=== PATIENT | male | born 1935 | race Caucasian/White ===

== ENCOUNTER → 2018-05-30 | Outpatient (CLI) | payer MEDICARE, OTHER ==
--- NOTE | 2018-05-30 12:35 | CT ---
EXAMINATION TYPE: CT brain wo con, CT facial bones wo con DATE OF EXAM: 05/30/2018 COMPARISON: None HISTORY: Multiple contusions, Syncope (accession [id number]), Multiple contusions and syncope (accessio n [id number]) CT DLP: 1542.90 mGycm Automated exposure control for dose reduction was used. TECHNIQUE: CT scan of the head and facial bones was performed without contrast. FINDINGS: There is no acute intracranial hemorrhage or midline shift identified. There is diffuse v entricular and sulcal prominence consistent with diffuse age-related cerebral atrophy. There is low- attenuation in the periventricular white matter consistent with chronic small vessel ischemic change. Calcification near the inferior margin of the fourth ventricle appears extradural and could relate to a small calcified meningioma measuring 6 mm. This is nonobstructive. Calcifications are also seen in the foramen of Luschka and therefore this calcification may represent calcified choroid. 3 mm mucosal retention cyst versus small polyp is seen at the medial aspect of the left maxillary sin us. There is an acute minimally displaced fracture of both the right and left anterior portions of the na bayron bone that is mildly comminuted on the left. This is displaced approximately 1 mm rightward bilate rally. Only very mild overlying soft tissue swelling is seen. Punctate hyperdense foci are seen withi n the skin surface overlying the nasal bridge and frontal scalp. Correlate with the clinical exam for radiopaque foreign body. Maxillary spine appears intact. The remaining facial bones appear intact with nasal septum overall re maining midline. The mandibular condyles are located within the mandibular fossa. Zygomatic arches an d pterygoid plates are intact. Lamina papyracea are also intact as are the orbits. Ostiomeatal comple xes are patent. Globes are symmetric. Ocular lenses are either severely atrophic or surgically absent . IMPRESSION: 1. No acute intracranial process. 2. Minimally displaced and mildly comminuted nasal bone fracture with mild soft tissue swelling over the nasal bridge and multiple punctate densities overlying the skin surface of the frontal region and nasal bridge and may relate to superficial foreign bodies. 3. Small 6 mm calcification near the lateral aspect of the fourth ventricle that is nonobstructive. T his could represent choroid calcification or a small meningioma.
--- NOTE | 2018-05-30 13:10 | US ---
EXAMINATION TYPE: US carotid duplex BILAT DATE OF EXAM: 05/30/2018 COMPARISON: NONE CLINICAL HISTORY: T07.XXXA multiple contusions, R55 syncope. Syncope EXAM MEASUREMENTS: RIGHT: Peak Systolic Velocity (PSV) cm/sec ----- Right CCA: 69.9 ----- Right ICA: 62.5 ----- Right ECA: 98.8 ICA/CCA ratio: 0.9 RIGHT: End Diastole cm/sec ----- Right CCA: 11.7 ----- Right ICA: 16.2 ----- Right ECA: 0.0 LEFT: Peak Systolic Velocity (PSV) cm/sec ----- Left CCA: 79.8 ----- Left ICA: 80.9 ----- Left ECA: 74.5 ICA/CCA ratio: 1.0 LEFT: End Diastole cm/sec ----- Left CCA: 16.0 ----- Left ICA: 20.6 ----- Left ECA: 0.0 VERTEBRALS (direction of flow): Right Vertebral: Antegrade Left Vertebral: Antegrade Rhythm: Normal No elevated velocities, no significant stenosis. IMPRESSION: 1. No significant hemodynamic stenosis. 2. Intimal thickening and changes of mild atherosclerotic plaque. Criteria for Assigning % of Stenosis / Diameter reduction (Estimation based on the indirect measurements of the internal carotid artery velocities (ICA PSV). 1. Normal (no stenosis)=ICA PSV < 125 cm/s: ratio < 2.0: ICA EDV<40 cm/s. 2. Less than 50% stenosis=ICA PSV < 125 cm/s: ratio < 2.0: ICA EDV<40 cm/s. 3. 50 to 69% stenosis=ICA PSV of 125 to 230 cm/s: ration 2.0 ? 4.0: ICA EDV 40-100 cm/s. 4. Greater than 70% stenosis to near occlusion= ICA PSV > 230 cm/s: ratio > 4.0: ICA EDV > 100 cm/s. 5. Near occlusion= ICA PSV velocities may be low or undetectable: variable ratio and ICA EDV. 6. Total occlusion=unable to detect flow.
--- NOTE | 2018-07-01 14:57 | HM ---
HOLTER MONITOR REPORT PROCEDURE PERFORMED: Event monitor PROCEDURE: Patient was monitored between May 30 and June 27, 2018. The baseline rhythm is sinus mechanism with episode of paroxysmal atrial tachycardia. No evidence of ventricular ectopic activity or significant pauses. CONCLUSION: Sinus mechanism baseline rhythm with short bursts of paroxysmal atrial tachycardia. JOSÉ MIGUEL / CHANTAL: [id number] /
== END | disposition home or self-care (01) ==
LOC: RADCTMAIN 11:41
PROVIDERS: ATTEND Internal Medicine
DX: I47.1 Supraventricular tachycardia (principal); R55 Syncope and collapse; S02.2XXA Fracture of nasal bones, initial encounter for closed fracture
CPT/HCPCS: 70450; 70486; 93270; 93271; 93880

== ENCOUNTER 2024-09-26 12:13 | Emergency (ER) | payer MEDICARE, OTHER ==
[2024-09-26 12:30] VITALS: BP 137/76; PULSE 93; RESP 18; TEMP 97.6
--- NOTE | 2024-09-26 13:05 | ED ---
General Adult HPI - General Chief complaint: Abdominal Pain Stated complaint: AMS Time Seen by Provider: 09/26/24 12:30 Source: patient, RN notes reviewed, old records reviewed Mode of arrival: wheelchair Limitations: no limitations - History of Present Illness Initial comments: This is an 89-year-old male who presents to the emergency department stating that he has a little bit of a bulge in his left inguinal region and he thinks he might have a hernia. Patient states it does not hurt. Patient denies any abdominal pain. Patient denies any nausea vomiting diarrhea. Patient denies any injury. Patient has any fever chills or cough. - Related Data Allergies Allergy/AdvReac Type Severity Reaction Status Date / Time No Known Allergies Allergy Verified 09/26/24 12:25 Review of Systems ROS Statement: Those systems with pertinent positive or pertinent negative responses have been documented in the HPI. ROS Other: All systems not noted in ROS Statement are negative. Past Medical History Past Medical History: No Reported History History of Any Multi-Drug Resistant Organisms: None Reported Past Surgical History: Tonsillectomy Past Psychological History: No Psychological Hx Reported Smoking Status: Former smoker Past Alcohol Use History: None Reported Past Drug Use History: None Reported General Exam - General Exam Comments Initial Comments: GENERAL: Patient is well-developed and well-nourished. Patient is nontoxic and well- hydrated and is in no acute distress. ENT: Neck is soft and supple. No significant lymphadenopathy is noted. Oropharynx is clear. Moist mucous membranes. Neck has full range of motion without eliciting any pain. EYES: The sclera were anicteric and conjunctiva were pink and moist. Extraocular movements were intact and pupils were equal round and reactive to light. Eyelids were unremarkable. PULMONARY: Unlabored respirations. Good breath sounds bilaterally. No audible rales rhonchi or wheezing was noted. CARDIOVASCULAR: There is a regular rate and rhythm without any murmurs gallops or rubs. ABDOMEN: Soft and nontender with normal bowel sounds. Small reducible left inguinal hernia SKIN: Skin is clear with no lesions or rashes and otherwise unremarkable. NEUROLOGIC: Patient is alert and oriented x3. Cranial nerves II through XII are grossly intact. Motor and sensory are also intact. Normal speech, volume and content. Symmetrical smile. MUSCULOSKELETAL: Normal extremities with adequate strength and full range of motion. LYMPHATICS: No significant lymphadenopathy is noted PSYCHIATRIC: Normal psychiatric evaluation. Limitations: no limitations Course Vital Signs 09/26/24 12:25 Temperature 97.6 F Pulse Rate 93 Respiratory 18 Rate Blood Pressure 137/76 O2 Sat by Pulse 98 Oximetry Disposition Clinical Impression: Inguinal hernia Disposition: HOME SELF-CARE Condition: Good Instructions (If sedation given, give patient instructions): Inguinal Hernia (ED) Is patient prescribed a controlled substance at d/c from ED?: No Referrals: Fantasma Grimaldo DO [Medical Doctor] - 1-2 days Fletcher Evans MD [Primary Care Provider] - 1-2 days Time of Disposition: 13:05
== END 2024-09-26 13:26 | disposition home or self-care (01) ==
LOC: EC 12:13
DX: K40.90 Unilateral inguinal hernia, without obstruction or gangrene, not specified as recurrent (principal); Z87.891 Personal history of nicotine dependence
CPT/HCPCS: 99283

== ENCOUNTER 2024-10-02 11:28 | Emergency (ER) | payer MEDICARE, OTHER ==
[2024-10-02 12:10] LABS: Basophils % (A) 0 %; Eosinophils % (A) 1 %; HCT 47.4 % (39.0-53.0); HGB 16.1 gm/dL (13.0-17.5); Lymphocytes # (A) 0.9 k/uL (1.0-4.8); Lymphocytes % (A) 14 %; MCH 33.2 pg (25.0-35.0); MCHC 33.8 g/dL (31.0-37.0); Mean Platelet Volume 9.4; Monocytes # (A) 0.3 k/uL (0-1.0); Monocytes % (A) 5 %; Neutrophils # (A) 4.7 k/uL (1.3-7.7); Neutrophils % (A) 76 %; Platelet Count 166 k/uL (150-450); RBC 4.84 m/uL (4.30-5.90); RDW 12.7 % (11.5-15.5); WBC 6.2 k/uL (3.8-10.6)
[2024-10-02 12:11] LABS: Appearance,Urine Clear (Clear); Bilirubin,Urine Negative (Negative); Blood,Urine Negative (Negative); Color,Urine Light Yellow; Glucose,Urine (UA) Negative (Negative); Ketones,Urine Negative (Negative); Leukocyte Esterase,Urine Negative (Negative); Nitrite,Urine Negative (Negative); Protein,Urine Negative (Negative); Specific Gravity,Urine 1.022 (1.001-1.035); Urobilinogen,Urine <2.0 mg/dL (<2.0)
[2024-10-02 12:21] LABS: ALT 15 U/L (4-49); AST 23 U/L (17-59); African American GFR (CKD) 89 (>60 ml/min/1.73 sqM); Albumin 3.9 g/dL (3.5-5.0); Alkaline Phosphatase 64 U/L (38-126); Anion Gap 4 mmol/L; Blood Urea Nitrogen 20 mg/dL (9-20); Calcium 9.3 mg/dL (8.4-10.2); Carbon Dioxide 31 mmol/L (22-30); Chloride 104 mmol/L (98-107); Glucose 104 mg/dL (74-99); Non-African American GFR(CKD) 77 (>60 ml/min/1.73 sqM); Potassium 4.4 mmol/L (3.5-5.1); Sodium 139 mmol/L (137-145); Total Protein 6.7 g/dL (6.3-8.2)
--- NOTE | 2024-10-02 12:39 | ED ---
Abdominal Pain HPI - General Chief Complaint: Abdominal Pain Stated Complaint: buldge in lower left side Time Seen by Provider: 10/02/24 11:37 Source: patient, RN notes reviewed, old records reviewed Mode of arrival: ambulatory Limitations: no limitations - History of Present Illness Initial Comments: 89-year-old male presented to ER with a chief complaint of left groin pain and bulging. He states it has been there for "a while". Patient is unsure of exactly how long. Patient was seen here on 09-26-2024 and diagnosed with a left inguinal hernia. It was reduced at that time. Patient states he is continue to have pain and discomfort to that area. He reports normal bowel movements and urinary habits. Denies any nausea, vomiting, fevers or chills. Patient has no other complaints at this time. - Related Data Home Medications Medication Instructions Recorded Confirmed No Known Home Medications 10/02/24 10/02/24 Allergies Allergy/AdvReac Type Severity Reaction Status Date / Time No Known Allergies Allergy Verified 10/02/24 14:31 Review of Systems ROS Statement: Those systems with pertinent positive or pertinent negative responses have been documented in the HPI. ROS Other: All systems not noted in ROS Statement are negative. Past Medical History Past Medical History: No Reported History History of Any Multi-Drug Resistant Organisms: None Reported Past Surgical History: Tonsillectomy Past Psychological History: No Psychological Hx Reported Smoking Status: Former smoker Past Alcohol Use History: None Reported Past Drug Use History: None Reported General Exam Limitations: no limitations General appearance: alert, in no apparent distress Respiratory exam: Present: normal lung sounds bilaterally. Absent: respiratory distress, wheezes, rales, rhonchi, stridor Cardiovascular Exam: Present: regular rate, normal rhythm, normal heart sounds. Absent: systolic murmur, diastolic murmur, rubs, gallop, clicks GI/Abdominal exam: Present: soft, normal bowel sounds, hernia (left inguinal). Absent: distended, tenderness, guarding, rebound, rigid Neurological exam: Present: alert, oriented X3, CN II-XII intact Skin exam: Present: warm, dry, intact, normal color. Absent: rash Course Vital Signs 10/02/24 10/02/24 10/02/24 11:31 13:33 14:00 Temperature 98 F 99.2 F Pulse Rate 89 98 83 Respiratory 20 18 18 Rate Blood Pressure 150/77 142/83 150/77 O2 Sat by Pulse 98 96 97 Oximetry 10/02/24 14:49 Temperature 98.9 F Pulse Rate 88 Respiratory 18 Rate Blood Pressure 152/86 O2 Sat by Pulse 97 Oximetry Medical Decision Making - Medical Decision Making Was pt. sent in by a medical professional or institution (, PA, SHOTG[employer] SHELL ASSEMBLY MACHINE ADJUSTER, urgent care, hospital, or [place] health care facility...) When possible be specific @ -No Did you speak to anyone other than the patient for history (EMS, parent, family, police, friend...)? What history was obtained from this source @ -No Did you review nursing and triage notes (agree or disagree)? Why? @ -I reviewed and agree with nursing and triage notes Were old charts reviewed (outside hosp., previous admission, EMS record, old EKG, old radiological studies, urgent care reports/EKG's, [place] health [facility] facility records)? Report findings @ -Yes, I reviewed ER visit from 09-26-2024. Patient seen here and diagnosed with inguinal hernia. Differential Diagnosis (chest pain, altered mental status, abdominal pain women, abdominal pain men, vaginal bleeding, weakness, fever, dyspnea, syncope, headache, dizziness, GI bleed, back pain, seizure, CVA, palpatations, mental health, musculoskeletal)? @ -Differential Abdominal Pain Men: Appendicitis, cholecystitis, diverticulosis, ischemic bowel, pancreatitis, hepatitis, UTI, gastroenteritis, AAA, incarcerated hernia, bowel obstruction, constipation, inflammatory bowel, hepatitis, peptic ulcer disease, splenic infarction, perforated viscus, testicular torsion, this is not meant to be an all-inclusive list EKG interpreted by me (3pts min.). @ -None done X-rays interpreted by me (1pt min.). @ -None done CT interpreted by me (1pt min.). @ -CT abdomen pelvis showing a left inguinal hernia with a small amount of bowel in hernia. No bowel obstruction or free air. Colonic diverticulosis. Large amount of stool in the colon. Prostamegaly. Cholelithiasis. Simple appearing renal cyst. U/S interpreted by me (1pt. min.). @ -None done What testing was considered but not performed or refused? (CT, X-rays, U/S, labs)? Why? @ -None What meds were considered but not given or refused? Why? @ -None Did you discuss the management of the patient with other professionals (professionals i.e. DrNichole, PA, [employer] SHELL ASSEMBLY MACHINE ADJUSTER, lab, RT, psych nurse, social media community manager, iap displays analyst, teacher, aoc operations intelligence officer, rn case manager hospice)? Give summary @ -No Was smoking cessation discussed for >3mins.? @ -No Was critical care preformed (if so, how long)? @ -No Were there social determinants of health that impacted care today? How? (Homelessness, low income, unemployed, alcoholism, drug addiction, transportation, low edu. Level, literacy, decrease access to med. care, fdc, rehab)? @ -No Was there de-escalation of care discussed even if they declined (Discuss DNR or withdrawal of care, Hospice)? DNR status @ -No What co-morbidities impacted this encounter? (DM, HTN, Smoking, COPD, CAD, Cancer, CVA, ARF, Chemo, Hep., AIDS, mental health diagnosis, sleep apnea, morbid obesity)? @ -None Was patient admitted / discharged? Hospital course, mention meds given and route, prescriptions, significant lab abnormalities, going to OR and other pertinent info. @ -Discharge. 89-year-old male presented to the ER with a chief complaint of left groin swelling. History and physical exam completed. Vitals stable. Patient in no significant distress nontoxic-appearing. Abdomen soft and nontender. Left inguinal hernia present. Laboratory studies and urinalysis obtained and unremarkable. CT abdomen pelvis performed to rule out complicating factors. CT showing a left inguinal hernia containing a small portion of the bowel. Upon reexamination. Patient resting comfortably in exam room no signs of acute distress. Hernia is reducible. Patient stable for discharge with general surgery follow-up. Referrals given. Strict return parameters discussed. Patient discharged in stable condition with follow-up to PCP. Patient verbally expressed understanding and agreement with care plan. Case discussed with ED attending, . Undiagnosed new problem with uncertain prognosis? @ -No Drug Therapy requiring intensive monitoring for toxicity (Heparin, Nitro, Insulin, Cardizem)? @ -No Were any procedures done? @ -No Diagnosis/symptom? @ -Inguinal hernia Acute, or Chronic, or Acute on Chronic? @ -Acute Uncomplicated (without systemic symptoms) or Complicated (systemic symptoms)? @ -Uncomplicated Side effects of treatment? @ -No Exacerbation, Progression, or Severe Exacerbation? @ -No Poses a threat to life or bodily function? How? (Chest pain, [place], [place], pneumonia, PE, COPD, DKA, ARF, appy, cholecystitis, CVA, Diverticulitis, Homicidal, Suicidal, threat to staff... and all critical care pts) @ -No - Lab Data Result diagrams: 10/02/24 12:00 10/02/24 12:00 Lab Results 10/02/24 10/02/24 10/02/24 Range/Units 12:00 12:00 12:00 WBC 6.2 (3.8-10.6) k/uL RBC 4.84 (4.30-5.90) m/uL Hgb 16.1 (13.0-17.5) gm/dL Hct 47.4 (39.0-53.0) % MCV 98.0 (80.0-100.0) fL MCH 33.2 (25.0-35.0) pg MCHC 33.8 (31.0-37.0) g/dL RDW 12.7 (11.5-15.5) % Plt Count 166 (150-450) k/uL MPV 9.4 Neutrophils % 76 % Lymphocytes % 14 % Monocytes % 5 % Eosinophils % 1 % Basophils % 0 % Neutrophils # 4.7 (1.3-7.7) k/uL Lymphocytes # 0.9 L (1.0-4.8) k/uL Monocytes # 0.3 (0-1.0) k/uL Eosinophils # 0.0 (0-0.7) k/uL Basophils # 0.0 (0-0.2) k/uL Sodium 139 (137-145) mmol/L Potassium 4.4 (3.5-5.1) mmol/L Chloride 104 (98-107) mmol/L Carbon Dioxide 31 H (22-30) mmol/L Anion Gap 4 mmol/L BUN 20 (9-20) mg/dL Creatinine 0.88 (0.66-1.25) mg/dL Est GFR (CKD-EPI)AfAm 89 (>60 ml/min/1.73 sqM) Est GFR (CKD-EPI)NonAf 77 (>60 ml/min/1.73 sqM) Glucose 104 H (74-99) mg/dL Plasma Lactic Acid Harsh (0.7-2.0) mmol/L Calcium 9.3 (8.4-10.2) mg/dL Total Bilirubin 1.0 (0.2-1.3) mg/dL AST 23 (17-59) U/L ALT 15 (4-49) U/L Alkaline Phosphatase 64 (38-126) U/L Total Protein 6.7 (6.3-8.2) g/dL Albumin 3.9 (3.5-5.0) g/dL Urine Color Light Yellow Urine Appearance Clear (Clear) Urine pH 5.0 (5.0-8.0) Ur Specific Cheriton 1.022 (1.001-1.035) Urine Protein Negative (Negative) Urine Glucose (UA) Negative (Negative) Urine Ketones Negative (Negative) Urine Blood Negative (Negative) Urine Nitrite Negative (Negative) Urine Bilirubin Negative (Negative) Urine Urobilinogen <2.0 (<2.0) mg/dL Ur Leukocyte Esterase Negative (Negative) 10/02/24 Range/Units 12:00 WBC (3.8-10.6) k/uL RBC (4.30-5.90) m/uL Hgb (13.0-17.5) gm/dL Hct (39.0-53.0) % MCV (80.0-100.0) fL MCH (25.0-35.0) pg MCHC (31.0-37.0) g/dL RDW (11.5-15.5) % Plt Count (150-450) k/uL MPV Neutrophils % % Lymphocytes % % Monocytes % % Eosinophils % % Basophils % % Neutrophils # (1.3-7.7) k/uL Lymphocytes # (1.0-4.8) k/uL Monocytes # (0-1.0) k/uL Eosinophils # (0-0.7) k/uL Basophils # (0-0.2) k/uL Sodium (137-145) mmol/L Potassium (3.5-5.1) mmol/L Chloride (98-107) mmol/L Carbon Dioxide (22-30) mmol/L Anion Gap mmol/L BUN (9-20) mg/dL Creatinine (0.66-1.25) mg/dL Est GFR (CKD-EPI)AfAm (>60 ml/min/1.73 sqM) Est GFR (CKD-EPI)NonAf (>60 ml/min/1.73 sqM) Glucose (74-99) mg/dL Plasma Lactic Acid Harsh 1.7 (0.7-2.0) mmol/L Calcium (8.4-10.2) mg/dL Total Bilirubin (0.2-1.3) mg/dL AST (17-59) U/L ALT (4-49) U/L Alkaline Phosphatase (38-126) U/L Total Protein (6.3-8.2) g/dL Albumin (3.5-5.0) g/dL Urine Color Urine Appearance (Clear) Urine pH (5.0-8.0) Ur Specific Cheriton (1.001-1.035) Urine Protein (Negative) Urine Glucose (UA) (Negative) Urine Ketones (Negative) Urine Blood (Negative) Urine Nitrite (Negative) Urine Bilirubin (Negative) Urine Urobilinogen (<2.0) mg/dL Ur Leukocyte Esterase (Negative) - Radiology Data Radiology results: report reviewed, image reviewed Disposition Clinical Impression: Inguinal hernia Disposition: HOME SELF-CARE Condition: Stable Instructions (If sedation given, give patient instructions): Inguinal Hernia (ED) Additional Instructions: Follow-up with general surgeon. Return to the ER for any new or worsening symptoms. Is patient prescribed a controlled substance at d/c from ED?: No Referrals: Fletcher Evans MD [Primary Care Provider] - 1-2 days Leigh Ford MD [STAFF PHYSICIAN] - 1-2 days Fantasma Grimaldo DO [Medical Doctor] - 1-2 days Time of Disposition: 16:00
[2024-10-02 13:37] VITALS: RESP 18
--- NOTE | 2024-10-02 14:01 | CT ---
EXAMINATION TYPE: CT abdomen pelvis w con DATE OF EXAM: 10/02/2024 1:43 PM COMPARISON: None CLINICAL INDICATION: Male, 89 years old with history of left inguninal pain; Left inguinal pain TECHNIQUE: Axial CT abdomen pelvis w con;Sagittal and coronal reformats were created on a separate w orkstation. Contrast used:100 ml mL of Isovue 300 with IV Contrast, (none if empty) Oral contrast used: without Oral Contrast (none if empty) CT DLP: 597.3 mGycm, Automated exposure control for dose reduction was used. FINDINGS: LOWER CHEST: Unremarkable ABDOMEN LIVER: Unremarkable GALLBLADDER AND BILE DUCTS: Layering increased densities within the lumen consistent with gallstones are present. PANCREAS: Unremarkable. SPLEEN: Unremarkable. ADRENAL GLANDS: Unremarkable. KIDNEYS AND URETERS: No evidence of hydronephrosis or renal calculus. The ureters are unremarkable. Simple appearing renal cysts bilaterally. PELVIS BLADDER: No evidence for wall thickening or mass given limitations of exam. REPRODUCTIVE: Prostate is enlarged in size measuring 5.7 cm in transverse dimension. ABDOMEN & PELVIS STOMACH AND BOWEL: No evidence of bowel obstruction. Is visualized and normal. Large amount stool in the colon. PERITONEUM/RETROPERITONEUM: No evidence of pneumoperitoneum or free fluid. VASCULATURE: No evidence of aortic aneurysm. MUSCULOSKELETAL: No acute osseous abnormalities LYMPH NODES: No gross evidence for lymphadenopathy. SOFT TISSUE/ABDOMINAL WALL: Left inguinal hernia containing portion of small bowel. No evidence of ob struction or circulation. IMPRESSION: 1. Left inguinal hernia containing portion of small bowel. No evidence of obstruction or circulation . 2. Colonic diverticulosis. 3. Large amount stool throughout the colon. 4. Prostatomegaly, correlate serum PSA. 5. Cholelithiasis. 6. Simple appearing renal cysts. [facility], , 10/02/2024 1:59 PM
[2024-10-02 14:50] VITALS: BP 152/86; PULSE 88; TEMP 98.9
== END 2024-10-02 15:10 | disposition home or self-care (01) ==
LOC: EC 11:28
DX: K40.90 Unilateral inguinal hernia, without obstruction or gangrene, not specified as recurrent (principal); K57.30 Diverticulosis of large intestine without perforation or abscess without bleeding; Z87.891 Personal history of nicotine dependence
CPT/HCPCS: 36415; 80053; 83605; 85025; 81003; 74177; 99285; Q9967

== ENCOUNTER 2024-10-07 15:55 | Emergency (ER) | payer MEDICARE, OTHER ==
[2024-10-07 16:03] VITALS: RESP 18
--- NOTE | 2024-10-07 17:03 | ED ---
Abdominal Pain HPI - General Chief Complaint: Abdominal Pain Stated Complaint: confusion/hernia Time Seen by Provider: 10/07/24 16:08 Source: patient, RN notes reviewed Mode of arrival: ambulatory Limitations: no limitations - History of Present Illness Initial Comments: This is a 89-year-old male presenting with left groin hernia. Patient is states he is seeking immediate surgery, hoping admission through the ER will expedite the process. Patient endorses discovery of the hernia and abdominal/pelvic CT scan on 10/02/2024. Patient denies fever, chills, abdominal pain, hematochezia, melena, constipation. Onset/Timin -: month(s) Location: LLQ Severity scale (1-10): 0 Associated Symptoms: denies other symptoms - Related Data Home Medications Medication Instructions Recorded Confirmed No Known Home Medications 10/02/24 10/02/24 Allergies Allergy/AdvReac Type Severity Reaction Status Date / Time No Known Allergies Allergy Verified 10/02/24 14:31 Review of Systems ROS Statement: Those systems with pertinent positive or pertinent negative responses have been documented in the HPI. ROS Other: All systems not noted in ROS Statement are negative. Past Medical History Past Medical History: No Reported History History of Any Multi-Drug Resistant Organisms: None Reported Past Surgical History: Tonsillectomy Past Psychological History: No Psychological Hx Reported Smoking Status: Former smoker Past Alcohol Use History: None Reported Past Drug Use History: None Reported General Exam Limitations: no limitations General appearance: alert, in no apparent distress Head exam: Present: atraumatic, normocephalic, normal inspection Eye exam: Present: normal appearance, PERRL, EOMI. Absent: scleral icterus, conjunctival injection, periorbital swelling ENT exam: Present: normal exam, mucous membranes moist Neck exam: Present: normal inspection. Absent: tenderness, meningismus, lymphadenopathy Respiratory exam: Present: normal lung sounds bilaterally. Absent: respiratory distress, wheezes, rales, rhonchi, stridor Cardiovascular Exam: Present: regular rate, normal rhythm, normal heart sounds. Absent: systolic murmur, diastolic murmur, rubs, gallop, clicks GI/Abdominal exam: Present: soft, normal bowel sounds, hernia (Mild, reducible protrusion of left inguinal region without overlying erythema/color change or indications of strangulation). Absent: distended, tenderness, guarding, rebound, rigid Extremities exam: Present: normal inspection, full ROM, normal capillary refill. Absent: tenderness, pedal edema, joint swelling, calf tenderness Back exam: Present: normal inspection Neurological exam: Present: alert, oriented X3, CN II-XII intact Psychiatric exam: Present: normal affect, normal mood Skin exam: Present: warm, dry, intact, normal color. Absent: rash Course Vital Signs 10/07/24 10/07/24 15:58 17:50 Temperature 97.5 F L 98.1 F Pulse Rate 80 81 Respiratory 18 18 Rate Blood Pressure 151/79 124/73 O2 Sat by Pulse 98 97 Oximetry Medical Decision Making - Medical Decision Making Was pt. sent in by a medical professional or institution (, [facility], [facility], urgent care, hospital, or fci...) When possible be specific @ -No Did you speak to anyone other than the patient for history (EMS, parent, family, police, friend...)? What history was obtained from this source @ -No Did you review nursing and triage notes (agree or disagree)? Why? @ -I reviewed and agree with nursing and triage notes Were old charts reviewed (outside hosp., previous admission, EMS record, old EKG, old radiological studies, urgent care reports/EKG's, fci records)? Report findings @ -Abdominal/pelvic CT from 1128 reviewed to confirm discovery of inguinal hernia. Differential Diagnosis (chest pain, altered mental status, abdominal pain women, abdominal pain men, vaginal bleeding, weakness, fever, dyspnea, syncope, headache, dizziness, GI bleed, back pain, seizure, CVA, palpatations, mental health, musculoskeletal)? @ -Inguinal hernia as previously diagnosed on 10/02/2024 EKG interpreted by me (3pts min.). @ -Not done X-rays interpreted by me (1pt min.). @ -None done CT interpreted by me (1pt min.). @ -None done U/S interpreted by me (1pt. min.). @ -None done What testing was considered but not performed or refused? (CT, X-rays, U/S, labs)? Why? @ -None What meds were considered but not given or refused? Why? @ -None Did you discuss the management of the patient with other professionals (professionals i.e. Dr., PA, [facility], lab, RT, psych nurse, social service worker, flare maker, teacher, vice squad police officer, medical case worker)? Give summary @ -No Was smoking cessation discussed for >3mins.? @ -No Was critical care preformed (if so, how long)? @ -No Were there social determinants of health that impacted care today? How? (Homelessness, low income, unemployed, alcoholism, drug addiction, transportation, low edu. Level, literacy, decrease access to med. care, [facility], rehab)? @ -No Was there de-escalation of care discussed even if they declined (Discuss DNR or withdrawal of care, Hospice)? DNR status @ -No What co-morbidities impacted this encounter? (DM, HTN, Smoking, COPD, CAD, Cancer, CVA, ARF, Chemo, Hep., AIDS, mental health diagnosis, sleep apnea, morbid obesity)? @ -None Was patient admitted / discharged? Hospital course, mention meds given and route, prescriptions, significant lab abnormalities, going to OR and other pertinent info. @ -No lab work or imaging ordered. Patient advised to follow-up with Dr. Grimaldo or Dr. Desouza for outpatient surgery. Undiagnosed new problem with uncertain prognosis? @ -No Drug Therapy requiring intensive monitoring for toxicity (Heparin, Nitro, Insulin, Cardizem)? @ -No Were any procedures done? @ -No Diagnosis/symptom? @ -Inguinal hernia without strangulation Acute, or Chronic, or Acute on Chronic? @ -Acute Uncomplicated (without systemic symptoms) or Complicated (systemic symptoms)? @ -Uncomplicated Side effects of treatment? @ -No Exacerbation, Progression, or Severe Exacerbation? @ -No Poses a threat to life or bodily function? How? (Chest pain, [place], [place], pneumonia, PE, COPD, DKA, ARF, appy, cholecystitis, CVA, Diverticulitis, Homicidal, Suicidal, threat to staff... and all critical care pts) @ -No Disposition Clinical Impression: Inguinal hernia Disposition: HOME SELF-CARE Condition: Good Instructions (If sedation given, give patient instructions): Inguinal Hernia (ED) Is patient prescribed a controlled substance at d/c from ED?: No Referrals: None,Stated [Primary Care Provider] - 1-2 days Fantasma Grimaldo DO [Medical Doctor] - 1-2 days Mely Desouza DO [Doctor of Osteopathic Medicine] - 1-2 days Time of Disposition: 17:09
[2024-10-07 17:51] VITALS: BP 124/73; PULSE 81; TEMP 98.1
== END 2024-10-07 17:52 | disposition home or self-care (01) ==
LOC: EC 15:55
DX: K40.90 Unilateral inguinal hernia, without obstruction or gangrene, not specified as recurrent (principal); Z87.891 Personal history of nicotine dependence
CPT/HCPCS: 99283

== ENCOUNTER 2024-12-16 06:37 | Inpatient (IN) | payer MEDICARE, OTHER ==
[~2024-12-16 06:37] MED LIST: LIDOCAINE 1% (10MG/ML) FOR IV START INTRADERMA PRN
[2024-12-16] MEDS: IV FLUID CONTINUATION 1,000 ML IV ONE ×2 (07:45→09:12)
[2024-12-16 07:56] LABS: Basophils % (A) 0 %; Eosinophils % (A) 1 %; HCT 45.7 % (39.0-53.0); HGB 15.4 gm/dL (13.0-17.5); Lymphocytes # (A) 0.6 k/uL (1.0-4.8); Lymphocytes % (A) 11 %; MCH 32.6 pg (25.0-35.0); MCHC 33.6 g/dL (31.0-37.0); MCV 96.8 fL (80.0-100.0); Mean Platelet Volume 9.3; Monocytes # (A) 0.4 k/uL (0-1.0); Monocytes % (A) 7 %; Neutrophils # (A) 4.4 k/uL (1.3-7.7); Neutrophils % (A) 77 %; Platelet Count 160 k/uL (150-450); RBC 4.71 m/uL (4.30-5.90); RDW 12.6 % (11.5-15.5); WBC 5.7 k/uL (3.8-10.6)
[2024-12-16] MEDS: MIDAZOLAM 2 MG/2 ML VIAL IV ONE (07:58)
--- NOTE | 2024-12-16 08:11 | P.ANPRN ---
Procedure Note - Anesthesia - Nerve Block Performed Bilateral Erector Spinae Single Time Out Performed: Yes Date of Procedure: 12/16/24 Procedure Start Time: 07:57 Procedure Stop Time: 08:02 Location of Patient: PreOp Indication: Acute Post-Operative Pain, Analgesia, Requested by Surgeon Sedation Type: Sedate with meaningful contact maintained Preparation: Sterile Prep Position: Prone Catheter: None Needle Types: Pajunk Needle Gauge: 21 Ultrasound used to visualize needle placement: Yes Ultrasound used to observe medication spread: Yes Injectate: 0.5% Ropivacaine (see comment for volume) (Ropiv 15ml+[id number], T11 needle level--Each side.) Blood Aspirated: No Pain Paresthesia on Injection Noted: No Resistance on Injection: Normal Image Stored and Saved: Yes Events: Uneventful and Well Tolerated
[2024-12-16] MEDS: LACTATED RINGERS 1,000 ML IV SCH (08:22)
[2024-12-16] MEDS: ONDANSETRON 4 MG/2 ML VIAL IVP ONE (08:23)
[2024-12-16] MEDS: HEPARIN SODIUM,PORCINE 5,000 UNIT/ML 1 ML VIAL SQ STA (08:24)
[2024-12-16] MEDS ORDERED: DEXAMETHASONE SOD PHOSPHATE 4 MG/ML 1 ML VIAL ONE (08:41)
[2024-12-16] MEDS ORDERED: SUCCINYLCHOLINE CHLORIDE 200 MG/10 ML VIAL IV ONE (08:41)
[2024-12-16] MEDS ORDERED: LIDOCAINE 1% INJ 10MG/ML (20 ML MDV) ONE (08:41)
[2024-12-16] MEDS ORDERED: fentaNYL (PF) 50 MCG/ML 2 ML AMP ONE (08:41)
[2024-12-16] MEDS ORDERED: NEOSTIGMINE 1 MG/ML 10 ML VIAL ONE (08:41)
[2024-12-16] MEDS ORDERED: PROPOFOL 10 MG/ML 20 ML VIAL IV ONE (08:41)
[2024-12-16] MEDS ORDERED: GLYCOPYRROLATE 0.2 MG/ML 2 ML VIAL ONE (08:41)
[2024-12-16] MEDS ORDERED: ROCURONIUM 10 MG/ML (5 ML VIAL) IV ONE (08:41)
[2024-12-16] MEDS ORDERED: ROPIVACAINE 5 MG/ML 30 ML VIAL ONE (08:41)
[2024-12-16] MEDS: BUPIVACAINE (PF) 0.25% 30 ML VIAL SQ ONE (09:15)
--- NOTE | 2024-12-16 10:03 | P.OP ---
Date of Procedure: 12/16/24 Preoperative Diagnosis: Left inguinal hernia Postoperative Diagnosis: Left inguinal hernia Procedure(s) Performed: Laparoscopic robotic cyst repair of left inguinal hernia Transversus abdominis plane block Anesthesia: JEANMARIE Surgeon: Bijan Lei Estimated Blood Loss (ml): 5 Pathology: none sent Condition: stable Disposition: PACU Description of Procedure: The patient's placed on the operating table in the supine position. The patient received general anesthesia. The patient's abdomen was prepped and draped in usual sterile fashion. The skin was anesthetized 1% local Xylocaine at the incision sites. Using an 11 blade a skin incision was made at the umbilicus. The fascia was grasped with a Opal and then the peritoneal cavity was entered with the Veress needle. Position of the Veress needle was confirmed with a positive drop test. After adequate insufflation a 5 mm trocar was placed into the peritoneal cavity. The Laparoscope was placed the peritoneal cavity. And a robotic 8 mm trocar was placed in the right lateral position and then another 8 mm robotic trochars placed in the left lateral position. The original 5 mm trocar was exchanged for a 12 mm trocar. A four-quadrant transversus abdominis plane block was performed with 1% local Xylocaine. The patient was placed in reverse Trendelenburg and then the patient was docked to the robot. Next the peritoneum over top of the hernia was incised and then using blunt and sharp dissection and electrocautery the hernia sac was dissected free from the floor of the inguinal canal. The hernia sac was completely reduced into the peritoneal cavity. And then using the [employer] travel counselor mesh the hernia was repaired. The peritoneum was then sutured with 20V lock suture. The patient was then undocked the robot. The needle was withdrawn from the peritoneal cavity. The umbilical trocar site was closed with 0 Ethibond suture. The skin was closed interrupted 3-0 Monocryl suture. Dermabond dressing was applied. Patient was sent to recovery in stable condition.
[2024-12-16] MEDS: HYDROmorphone 0.5 MG/0.5 ML SYRINGE IVP PRN (11:15)
[2024-12-16] MEDS ORDERED: HYDROcodone/APAP 5-325MG 1 EACH TAB PO PRN (12:37)
[2024-12-16] MEDS ORDERED: HYDROmorphone 0.5 MG/0.5 ML SYRINGE IVP PRN (12:38)
[2024-12-16] MEDS: TAMSULOSIN 0.4 MG CAP.ER.24H PO STA (12:53)
[2024-12-16] MEDS: amLODIPine 5 MG TAB PO SCH (14:26)
--- NOTE | 2024-12-17 01:26 | CONS ---
CONSULTATION REASON FOR CONSULTATION: Hypertension, other medications, requested by Dr. Lei. HISTORY OF PRESENT ILLNESS: This 89-year-old gentleman with a past no Primary Physician, admitted after laparoscopic repair of the left inguinal hernia. The patient is found to be mildly hypertensive. Otherwise, no chest pain. No palpitations. No fever at this time. PAST MEDICAL HISTORY: No significant cardiovascular illness. MEDICATIONS: None. ALLERGIES: None. FAMILY HISTORY: No history of heart disease or stroke. SOCIAL HISTORY: No history of smoking or alcohol. REVIEW OF SYSTEMS: A 14-point review of systems is negative except as mentioned earlier. PHYSICAL EXAMINATION: VITAL SIGNS: Pulse is 71, blood pressure 160/70, and respirations 16. HEENT: Conjunctivae normal. NECK: No JVD. CARDIOVASCULAR: S1, S2. RESPIRATIONS: Breath sounds diminished at the bases. No rhonchi. No crackles. ABDOMEN: Soft, status post surgery. LEGS: No edema. NERVOUS SYSTEM: Nonfocal. LABORATORY DATA: CBC within normal limits. ASSESSMENT: 1. Hypertension. 2. Status post laparoscopic repair of the left inguinal hernia. RECOMMENDATIONS AND DISCUSSION: This 89-year-old gentleman, who presented after surgery. At this time, I recommend to continue the current medications, symptomatic treatment. Otherwise, repeat labs in the morning. We will continue to monitor. Incentive spirometer and DVT prophylaxis. Further recommendations to follow. We will add small dose of Norvasc. Follow with the primary physician at outpatient setting. JOSÉ MIGUEL / LOREN: [id number] / MTDD
[2024-12-17] MEDS: TAMSULOSIN 0.4 MG CAP.ER.24H PO SCH (09:31)
[2024-12-17] MEDS: ACETAMINOPHEN TAB 325 MG TAB PO PRN (10:31)
--- NOTE | 2024-12-17 12:46 | P.PN ---
Subjective Progress Note Date: 12/17/24 SURGICAL PROGRESS NOTE CHIEF COMPLAINT: Left inguinal hernia HISTORY OF PRESENT ILLNESS: Patient is postop day #1 status post laparoscopic robotic repair of left inguinal hernia. Patient was confused during the night and had pulled on his Poole catheter. His Poole catheter was placed yesterday due to urinary retention. He had mild hematuria after pulling on catheter. Patient is currently awake and alert answering questions. He denies any flatus. Pain is controlled. He is requesting that the catheter be removed. Patient has received Flomax. Afebrile. WBC 5.7 Hgb 15.4 PHYSICAL EXAM: VITAL SIGNS: Reviewed. GENERAL: Well-developed in no acute distress. HEENT: No sclera icterus. Extraocular movements grossly intact. Moist buccal mucosa. Head is atraumatic, normocephalic. ABDOMEN: Soft. Nondistended. Incision sites clean dry and intact NEUROLOGIC: Alert and orientated times to his name and place. Patient did not know the year but he knew that it was the month of December ASSESSMENT: 1. Left inguinal hernia 2. Urinary retention PLAN: -Discontinue Poole catheter -Continue Flomax -Continue to monitor for any urinary retention -Tylenol added for oral pain medication -Discussed with nursing staff to try to limit narcotics if patient is confused -Consult PT OT. Patient may require placement. -DVT prophylaxis subcu heparin added Physician Bankruptcy Attorney note has been reviewed by physician. Signing provider agrees with the documented findings, assessment, and plan of care. Objective - Vital Signs Vital signs: Vital Signs Temp 98.6 F 12/17/24 07:00 Pulse 84 12/17/24 07:00 Resp 16 12/17/24 07:00 BP 142/67 12/17/24 07:00 Pulse Ox 96 12/17/24 07:00 FiO2 Intake & Output 12/16/24 12/17/24 12/17/24 18:59 06:59 18:59 Intake Total 1100 Output Total 510 1600 Balance 590 -1600 Intake: IV 1100 Output: Urine 500 1600 Estimated Blood Loss 10 Other: Voiding Method Indwelling Catheter Indwelling Catheter - Labs CBC & Chem 7: 12/16/24 07:46
[2024-12-17] MEDS: HEPARIN SODIUM,PORCINE 5,000 UNIT/ML 1 ML VIAL SQ SCH (20:17)
--- NOTE | 2024-12-17 21:31 | PN ---
PROGRESS NOTE DATE OF SERVICE: 12/17/2024 SUBJECTIVE: This is an 89-year-old gentleman, admitted after inguinal hernia repair, had some mild hypertension. No chest pain. No palpitations. No fever. OBJECTIVE: VITAL SIGNS: Stable. CARDIOVASCULAR: S1, S2. RESPIRATIONS: Breath sounds diminished at the bases. A few scattered rhonchi. ABDOMEN: Soft, status post surgery. LEGS: No edema. NERVOUS SYSTEM: Nonfocal. LABORATORY DATA: Reviewed. ASSESSMENT: 1. Hypertension. 2. Status post laparoscopic repair of the left inguinal hernia. RECOMMENDATIONS AND DISCUSSION: I recommend to continue current medications. Continue symptomatic treatment. Recommend close followup with primary physician. Continue Norvasc on discharge. Further recommendations to follow. MMODL / IJN: [id number] /
--- NOTE | 2024-12-18 11:14 | P.PN ---
Subjective Progress Note Date: 12/18/24 SURGICAL PROGRESS NOTE CHIEF COMPLAINT: Left inguinal hernia HISTORY OF PRESENT ILLNESS: Patient is postop day #2 status post laparoscopic robotic repair of left inguinal hernia. Per nursing staff patient still having a episodes of confusion. He also had some hallucinations. He is currently sitting at the bedside chair. Answering questions appropriately. He was able to tolerate diet. No nausea or vomiting. No bowel movement yet. He is urinating without difficulty. He is passing a few clots in his urine per nursing staff due to Poole catheter trauma. Also patient fell back in his bed hitting the side of his head. PHYSICAL EXAM: VITAL SIGNS: Reviewed. GENERAL: Well-developed in no acute distress. ABDOMEN: Soft. Nondistended. Incision sites clean dry and intact NEUROLOGIC: Awake and alert ASSESSMENT: 1. Left inguinal hernia 2. Urinary retention improved PLAN: -Social work is arranging ECF placement. They have also ordered APS eval -Continue to work with PT OT -Continue Flomax -Continue to monitor for any urinary retention -Continue pain management -DVT prophylaxis subcu heparin Physician Turn Machine Operator note has been reviewed by physician. Signing provider agrees with the documented findings, assessment, and plan of care. Objective - Vital Signs Vital signs: Vital Signs Temp 98.4 F 12/18/24 02:00 Pulse 91 12/18/24 02:00 Resp 19 12/18/24 08:00 BP 160/73 12/18/24 02:00 Pulse Ox 94 L 12/18/24 02:00 FiO2 Intake & Output 12/17/24 12/18/24 12/18/24 18:59 06:59 18:59 Intake Total 459 Output Total 500 200 Balance -41 -200 Intake: Oral 459 Output: Urine 500 200 Uretheral (Poole) 400 Other: Voiding Method Indwelling Catheter Toilet Toilet Urinal Urinal # Voids 2 - Labs CBC & Chem 7: 12/16/24 07:46
--- NOTE | 2024-12-18 12:52 | CT ---
EXAMINATION TYPE: CT brain wo con DATE OF EXAM: 12/18/2024 12:33 PM COMPARISON: 05/30/2028 CLINICAL INDICATION: Male, 89 years old with history of hit head on side rail, Head injury. TECHNIQUE: Brain: Axial CT images of the brain were obtained with coronal and sagittal reformats created and rev iewed. Contrast used: None. Oral contrast used: None. CT DLP: 928.1 mGycm, Automated exposure control for dose reduction was used. FINDINGS: Brain: Extra-axial spaces: No abnormal extra-axial fluid collections. Ventricular system: Dilatation in proportion to cerebral atrophy. Cerebral parenchyma: Cerebral atrophy. No acute intraparenchymal hemorrhage or mass effect. The madrigal -white junction is well differentiated. Scattered hypoattenuating areas are seen within the white mat ter. Cerebellum: Unremarkable. Mass effect: No evidence of midline shift. Intracranial vasculature: Atherosclerotic calcifications of the intracranial vessels. Soft tissues: Normal. Calvarium/osseous structures: No depressed skull fracture. Paranasal sinuses and mastoid air cells: Mild scattered paranasal sinus disease. Visualized orbits: Bilateral aphakia IMPRESSION: 1. No acute intracranial process. 2. Nonspecific white matter changes, likely secondary to chronic small vessel ischemic disease. [facility], , 12/18/2024 12:49 PM
--- NOTE | 2024-12-18 15:29 | P.PN ---
Subjective This is a pleasant 89 years old male who was admitted by surgery team for elective left inguinal hernia status postrepair Developed acute urinary turned tension, currently Poole catheter was removed. Patient was mildly confused but it looks improvement, last night he fell, CT of the brain was negative for acute process Today he is awake alert mildly confused, he follows command, he has insight into his illness. His left inguinal wound is healing He denies chest pain or dyspnea. No abdominal pain vomiting or diarrhea. No specific urinary symptoms. He is hemodynamically stable and afebrile. CBC was checked 2 days ago was unremarkable with no leukocytosis. Looks like also patient has difficulty with placement, social work supervisor on the case. Patient may need guardianship Objective - Vital Signs Vital signs: Vital Signs Temp 97.5 F L 12/18/24 07:40 Pulse 93 12/18/24 07:40 Resp 19 12/18/24 08:00 BP 124/55 12/18/24 07:40 Pulse Ox 96 12/18/24 07:40 FiO2 Intake & Output 12/17/24 12/18/24 12/18/24 18:59 06:59 18:59 Intake Total 459 118 Output Total 500 200 Balance -41 -82 Intake: Oral 459 118 Output: Urine 500 200 Uretheral (Poole) 400 Other: Voiding Method Indwelling Catheter Toilet Toilet Urinal Urinal # Voids 2 - Exam -GENERAL: The patient is alert and oriented x 2-3 partial, not in any acute distress. Well developed, well nourished. Generally weak HEENT: Pupils are round and equally reacting to light. EOMI. No scleral icterus. No conjunctival pallor. Normocephalic, atraumatic. No pharyngeal erythema. No thyromegaly. CARDIOVASCULAR: S1 and S2 present. No murmurs, rubs, or gallops. PULMONARY: Chest is clear to auscultation, no wheezing , no crackles. -ABDOMEN: Soft, nontender, nondistended, normoactive bowel sounds. No palpable organomegaly. Left inguinal wound is closed and healing MUSCULOSKELETAL: No joint swelling or deformity. EXTREMITIES: No cyanosis, clubbing, or pedal edema. NEUROLOGICAL: Gross neurological examination did not reveal any focal deficits. SKIN: No rashes. no petechiae. - Labs CBC & Chem 7: 12/16/24 07:46 Assessment and Plan Assessment: Fall without syncope Mild metabolic encephalopathy Acute urinary retention Left inguinal hernia s/p elective repair on 12/16 Hypertension Require placement Plan: Continue with pain management Continue supportive care Close monitoring Surgery team following closely Check labs Labs and medication were reviewed.. Continue same treatment. Continue with symptomatic treatment. Resume home medication. Monitor labs and vitals. DVT and GI prophylaxis. Further recommendations as per clinical course of the patient DVT prophylaxis: Subcutaneous heparin GI Prophylaxis: Pepcid PT/OT: Pending appliance worker on the case for placement Prognosis is guarded
[2024-12-18 15:56] LABS: African American GFR (CKD) 81 (>60 ml/min/1.73 sqM); Anion Gap 7 mmol/L; Blood Urea Nitrogen 25 mg/dL (9-20); Calcium 9.1 mg/dL (8.4-10.2); Carbon Dioxide 30 mmol/L (22-30); Chloride 101 mmol/L (98-107); Glucose 116 mg/dL (74-99); Non-African American GFR(CKD) 70 (>60 ml/min/1.73 sqM); Potassium 4.3 mmol/L (3.5-5.1); Sodium 138 mmol/L (137-145)
[2024-12-18 15:57] LABS: HGB 15.4 gm/dL (13.0-17.5); MCH 33.5 pg (25.0-35.0); MCHC 34.2 g/dL (31.0-37.0); MCV 97.9 fL (80.0-100.0); Mean Platelet Volume 9.9; Platelet Count 157 k/uL (150-450); RBC 4.59 m/uL (4.30-5.90); RDW 12.7 % (11.5-15.5); WBC 8.9 k/uL (3.8-10.6)
[2024-12-18 16:39] LABS: Lymphocytes # (M) 1.16 k/uL (1.0-4.8); Monocytes # (M) 0.36 k/uL (0-1.0); Neutrophils # (M) 7.39 k/uL (1.3-7.7); Neutrophils % (M) 83 %; Nucleated Red Blood Cells 0 /100 WBC (0-0); Total Cells Counted 100
[2024-12-19 01:24] LABS: Appearance,Urine Clear (Clear); Bacteria,Urine Rare /hpf; Bilirubin,Urine Negative (Negative); Blood,Urine Large (Negative); Color,Urine Yellow; Glucose,Urine (UA) Negative (Negative); Hyaline Casts,Urine 1 /lpf (0-2); Ketones,Urine Negative (Negative); Leukocyte Esterase,Urine Negative (Negative); Mucus,Urine Few /hpf; Nitrite,Urine Negative (Negative); PH, Urine 5.5 (5.0-8.0); Protein,Urine Trace (Negative); RBC,Urine 135 /hpf (0-5); Specific Gravity,Urine 1.027 (1.001-1.035); Urobilinogen,Urine <2.0 mg/dL (<2.0); WBC,Urine 7 /hpf (0-5)
--- NOTE | 2024-12-19 10:16 | P.PN ---
Subjective Progress Note Date: 12/19/24 SURGICAL PROGRESS NOTE CHIEF COMPLAINT: Left inguinal hernia HISTORY OF PRESENT ILLNESS: Patient is postop day #3 status post laparoscopic robotic repair of left inguinal hernia. Patient sitting up in bedside chair. He is eating breakfast. Denies any nausea or vomiting. Pain is controlled. Patient has been confused. Social work is arranging possible ECF placement and assessing patient if a guardian is needed. Afebrile. PHYSICAL EXAM: VITAL SIGNS: Reviewed. GENERAL: Well-developed in no acute distress. ABDOMEN: Soft. Nondistended. Incision sites clean dry and intact NEUROLOGIC: Awake and answering question. mild confusion ASSESSMENT: 1. Left inguinal hernia 2. Urinary retention improved PLAN: -Social work is arranging possible ECF placement and assessing patient if a guardian is needed -Continue to work with PT OT -Continue Flomax -Continue to monitor for any urinary retention -Continue pain management -Patient is stable for discharge from surgical standpoint when medically cleared and placement is arranged -DVT prophylaxis subcu heparin Physician Flask Maker note has been reviewed by physician. Signing provider agrees with the documented findings, assessment, and plan of care. Objective - Vital Signs Vital signs: Vital Signs Temp 97.7 F 12/19/24 07:00 Pulse 84 12/19/24 07:00 Resp 16 12/19/24 07:00 BP 112/70 12/19/24 07:00 Pulse Ox 97 12/19/24 07:00 FiO2 Intake & Output 12/18/24 12/19/24 12/19/24 18:59 06:59 18:59 Intake Total 458 240 Output Total 300 Balance 158 240 Intake: Oral 458 240 Output: Urine 300 Other: Voiding Method Toilet Toilet Urinal Urinal # Voids 4 - Labs CBC & Chem 7: 12/18/24 15:35 12/18/24 15:35 Labs: Abnormal Lab Results - Last 24 Hours (Table) 12/18/24 12/18/24 Range/Units 15:35 23:49 BUN 25 H (9-20) mg/dL Glucose 116 H (74-99) mg/dL Urine Protein Trace H (Negative) Urine Blood Large H (Negative) Urine RBC 135 H (0-5) /hpf Urine WBC 7 H (0-5) /hpf Urine Bacteria Rare H (None) /hpf Urine Mucus Few H (None) /hpf
--- NOTE | 2024-12-20 21:03 | P.PN ---
Subjective Progress Note Date: 12/19/24 This is a pleasant 89 years old male who was admitted by surgery team for elective left inguinal hernia status postrepair Developed acute urinary turned tension, currently Poole catheter was removed. Patient was mildly confused but it looks improvement, last night he fell, CT of the brain was negative for acute process Today he is awake alert mildly confused, he follows command, he has insight into his illness. His left inguinal wound is healing He denies chest pain or dyspnea. No abdominal pain vomiting or diarrhea. No specific urinary symptoms. He is hemodynamically stable and afebrile. CBC was checked 2 days ago was unremarkable with no leukocytosis. Looks like also patient has difficulty with placement, child welfare social worker on the case. Patient may need guardianship Objective - Vital Signs Vital signs: Vital Signs Temp 97.7 F 12/19/24 07:00 Pulse 84 12/19/24 08:00 Resp 16 12/19/24 08:00 BP 112/70 12/19/24 07:00 Pulse Ox 97 12/19/24 07:00 FiO2 Intake & Output 12/18/24 12/19/24 12/19/24 18:59 06:59 18:59 Intake Total 458 240 240 Output Total 300 100 Balance 158 240 140 Intake: Oral 458 240 240 Output: Urine 300 100 Other: Voiding Method Toilet Toilet Toilet Urinal Urinal Urinal # Voids 4 1 # Bowel Movements 1 - Exam -GENERAL: The patient is alert and oriented x 2-3 partial, not in any acute distress. Well developed, well nourished. Generally weak HEENT: Pupils are round and equally reacting to light. EOMI. No scleral icterus. No conjunctival pallor. Normocephalic, atraumatic. No pharyngeal erythema. No thyromegaly. CARDIOVASCULAR: S1 and S2 present. No murmurs, rubs, or gallops. PULMONARY: Chest is clear to auscultation, no wheezing , no crackles. -ABDOMEN: Soft, nontender, nondistended, normoactive bowel sounds. No palpable organomegaly. Left inguinal wound is closed and healing MUSCULOSKELETAL: No joint swelling or deformity. EXTREMITIES: No cyanosis, clubbing, or pedal edema. NEUROLOGICAL: Gross neurological examination did not reveal any focal deficits. SKIN: No rashes. no petechiae. - Labs CBC & Chem 7: 12/18/24 15:35 12/18/24 15:35 Labs: Abnormal Lab Results - Last 24 Hours (Table) 12/18/24 12/18/24 Range/Units 15:35 23:49 BUN 25 H (9-20) mg/dL Glucose 116 H (74-99) mg/dL Urine Protein Trace H (Negative) Urine Blood Large H (Negative) Urine RBC 135 H (0-5) /hpf Urine WBC 7 H (0-5) /hpf Urine Bacteria Rare H (None) /hpf Urine Mucus Few H (None) /hpf Assessment and Plan Assessment: Fall without syncope Mild metabolic encephalopathy Acute urinary retention Left inguinal hernia s/p elective repair on 12/16 Hypertension Require placement Plan: Continue with pain management Continue supportive care Close monitoring Surgery team following closely Check labs Labs and medication were reviewed.. Continue same treatment. Continue with symptomatic treatment. Resume home medication. Monitor labs and vitals. DVT and GI prophylaxis. Further recommendations as per clinical course of the patient DVT prophylaxis: Subcutaneous heparin GI Prophylaxis: Pepcid PT/OT: Pending composition worker on the case for placement Prognosis is guarded
--- NOTE | 2024-12-21 18:06 | P.PN ---
Subjective Progress Note Date: 12/20/24 This is a pleasant 89 years old male who was admitted by surgery team for elective left inguinal hernia status postrepair Developed acute urinary turned tension, currently Poole catheter was removed. Patient was mildly confused but it looks improvement, last night he fell, CT of the brain was negative for acute process Today he is awake alert mildly confused, he follows command, he has insight into his illness. His left inguinal wound is healing He denies chest pain or dyspnea. No abdominal pain vomiting or diarrhea. No specific urinary symptoms. He is hemodynamically stable and afebrile. CBC was checked 2 days ago was unremarkable with no leukocytosis. Looks like also patient has difficulty with placement, social work coordinator on the case. Patient may need guardianship 12/20/2024 Patient seen and evaluated resting comfortably in bed; very hard of hearing; patient is status post left inguinal hernia repair on 12/16/2024 Vital signs are reviewed and remained stable Patient is being followed by surgery; recommending to continue with Flomax for urinary retention; pain management as discussed earlier -Patient is recommended ECF placement; case management on board -Discharge when arrangements are made Objective - Vital Signs Vital signs: Vital Signs Temp 98.4 F 12/20/24 13:20 Pulse 89 12/20/24 13:20 Resp 17 12/20/24 13:20 BP 117/70 12/20/24 13:20 Pulse Ox 96 12/20/24 13:20 FiO2 Intake & Output 12/19/24 12/20/24 12/20/24 18:59 06:59 18:59 Intake Total 240 Output Total 275 700 200 Balance -35 -700 -200 Weight 63.503 kg Intake: Oral 240 Output: Urine 275 700 200 Other: Voiding Method Urinal Toilet Toilet Urinal Urinal # Voids 1 2 # Bowel Movements 1 1 - Exam -GENERAL: The patient is alert and oriented x 2-3 partial, not in any acute distress. Well developed, well nourished. Generally weak HEENT: Pupils are round and equally reacting to light. EOMI. No scleral icterus. No conjunctival pallor. Normocephalic, atraumatic. No pharyngeal erythema. No thyromegaly. CARDIOVASCULAR: S1 and S2 present. No murmurs, rubs, or gallops. PULMONARY: Chest is clear to auscultation, no wheezing , no crackles. -ABDOMEN: Soft, nontender, nondistended, normoactive bowel sounds. No palpable organomegaly. Left inguinal wound is closed and healing MUSCULOSKELETAL: No joint swelling or deformity. EXTREMITIES: No cyanosis, clubbing, or pedal edema. NEUROLOGICAL: Gross neurological examination did not reveal any focal deficits. SKIN: No rashes. no petechiae. - Labs CBC & Chem 7: 12/18/24 15:35 12/18/24 15:35 Assessment and Plan Assessment: Fall without syncope Mild metabolic encephalopathy Acute urinary retention Left inguinal hernia s/p elective repair on 12/16 Hypertension Require placement Plan: Continue with pain management Continue supportive care Close monitoring Surgery team following closely Check labs Labs and medication were reviewed.. Continue same treatment. Continue with symptomatic treatment. Resume home medication. Monitor labs and vitals. DVT and GI prophylaxis. Further recommendations as per clinical course of the patient DVT prophylaxis: Subcutaneous heparin GI Prophylaxis: Pepcid PT/OT: Pending equipment worker on the case for placement Prognosis is guarded
--- NOTE | 2024-12-21 18:07 | P.PN ---
Subjective Progress Note Date: 12/21/24 This is a pleasant 89 years old male who was admitted by surgery team for elective left inguinal hernia status postrepair Developed acute urinary turned tension, currently Poole catheter was removed. Patient was mildly confused but it looks improvement, last night he fell, CT of the brain was negative for acute process Today he is awake alert mildly confused, he follows command, he has insight into his illness. His left inguinal wound is healing He denies chest pain or dyspnea. No abdominal pain vomiting or diarrhea. No specific urinary symptoms. He is hemodynamically stable and afebrile. CBC was checked 2 days ago was unremarkable with no leukocytosis. Looks like also patient has difficulty with placement, psychosocial rehabilitation counselor on the case. Patient may need guardianship 12/20/2024 Patient seen and evaluated resting comfortably in bed; very hard of hearing; patient is status post left inguinal hernia repair on 12/16/2024 Vital signs are reviewed and remained stable Patient is being followed by surgery; recommending to continue with Flomax for urinary retention; pain management as discussed earlier -Patient is recommended ECF placement; case management on board -Discharge when arrangements are made 12/21/2024 Patient is seen and evaluated in room; denies any specific complaints; discussed with nursing staff; no specific concerns reported Vital signs are reviewed and stable with temperature of 98.5, pulse 81, respirations 16 and blood pressure 125/69 with O2 saturation 96% on room air Lab reviewed from 12/18/2024 shows WBC 8.9, hemoglobin of 15.4 and platelet count of 157, sodium 138, potassium 4.3, BUNs/creatinine of 25/0.97 -Patient awaits placement to ECF once arrangements are made; patient will need a guardian appointed prior to transition; case management on board Objective - Vital Signs Vital signs: Vital Signs Temp 98.1 F 12/21/24 06:50 Pulse 72 12/21/24 06:50 Resp 16 12/21/24 06:50 BP 156/54 12/21/24 06:50 Pulse Ox 98 12/21/24 06:50 FiO2 Intake & Output 12/20/24 12/21/24 12/21/24 18:59 06:59 18:59 Intake Total 118 236 Output Total 200 300 Balance -82 -300 236 Weight 63.503 kg Intake: Oral 118 236 Output: Urine 200 300 Other: Voiding Method Toilet Toilet Toilet Urinal Urinal Urinal # Voids 2 0 # Bowel Movements 1 - Exam -GENERAL: The patient is alert and oriented x 2-3 partial, not in any acute distress. Well developed, well nourished. Generally weak HEENT: Pupils are round and equally reacting to light. EOMI. No scleral icterus. No conjunctival pallor. Normocephalic, atraumatic. No pharyngeal erythema. No thyromegaly. CARDIOVASCULAR: S1 and S2 present. No murmurs, rubs, or gallops. PULMONARY: Chest is clear to auscultation, no wheezing , no crackles. -ABDOMEN: Soft, nontender, nondistended, normoactive bowel sounds. No palpable organomegaly. Left inguinal wound is closed and healing MUSCULOSKELETAL: No joint swelling or deformity. EXTREMITIES: No cyanosis, clubbing, or pedal edema. NEUROLOGICAL: Gross neurological examination did not reveal any focal deficits. SKIN: No rashes. no petechiae. - Labs CBC & Chem 7: 12/18/24 15:35 12/18/24 15:35 Assessment and Plan Assessment: Fall without syncope Mild metabolic encephalopathy Acute urinary retention Left inguinal hernia s/p elective repair on 12/16 Hypertension Require placement Plan: Continue with pain management Continue supportive care Close monitoring Surgery team following closely Check labs Labs and medication were reviewed.. Continue same treatment. Continue with symptomatic treatment. Resume home medication. Monitor labs and vitals. DVT and GI prophylaxis. Further recommendations as per clinical course of the pat ient DVT prophylaxis: Subcutaneous heparin GI Prophylaxis: Pepcid PT/OT: Pending breakdown worker on the case for placement Prognosis is guarded
--- NOTE | 2024-12-22 12:12 | P.PN ---
Subjective Progress Note Date: 12/22/24 SURGICAL PROGRESS NOTE CHIEF COMPLAINT: Left inguinal hernia HISTORY OF PRESENT ILLNESS: Patient is postop day #4 status post laparoscopic robotic repair of left inguinal hernia. Patient sitting up in bed comfortably. He reports having bowel movements. Denies any nausea or vomiting. Tolerating diet. PHYSICAL EXAM: VITAL SIGNS: Reviewed. GENERAL: Well-developed in no acute distress. ABDOMEN: Soft. Nondistended. Incision sites clean dry and intact NEUROLOGIC: Awake and answering question. mild confusion ASSESSMENT: 1. Left inguinal hernia 2. Urinary retention improved PLAN: -Social work awaiting court date and time for guardianship hearing -Continue to work with PT OT -Patient is stable for discharge from surgical standpoint when medically cleared and placement is arranged -Discussed with nursing staff to shower patient today -DVT prophylaxis subcu heparin Physician Waistline Joiner Overlock note has been reviewed by physician. Signing provider agrees with the documented findings, assessment, and plan of care. Objective - Vital Signs Vital signs: Vital Signs Temp 98 F 12/22/24 07:00 Pulse 78 12/22/24 07:00 Resp 16 12/22/24 07:00 BP 143/67 12/22/24 07:00 Pulse Ox 98 12/22/24 07:00 FiO2 Intake & Output 12/21/24 12/22/24 12/22/24 18:59 06:59 18:59 Intake Total 354 118 Balance 354 118 Intake: Oral 354 118 Other: Voiding Method Toilet Toilet Toilet Urinal Urinal Urinal # Voids 5 2 1 # Bowel Movements 1 1 - Labs CBC & Chem 7: 12/18/24 15:35 12/18/24 15:35
--- NOTE | 2024-12-22 12:37 | P.PN ---
Subjective This is a pleasant 89 years old male who was admitted by surgery team for elective left inguinal hernia status postrepair Developed acute urinary turned tension, currently Poole catheter was removed. Patient was mildly confused but it looks improvement, last night he fell, CT of the brain was negative for acute process Today he is awake alert mildly confused, he follows command, he has insight into his illness. His left inguinal wound is healing He denies chest pain or dyspnea. No abdominal pain vomiting or diarrhea. No specific urinary symptoms. He is hemodynamically stable and afebrile. CBC was checked 2 days ago was unremarkable with no leukocytosis. Looks like also patient has difficulty with placement, social media specialist on the case. Patient may need guardianship 12/20/2024 Patient seen and evaluated resting comfortably in bed; very hard of hearing; patient is status post left inguinal hernia repair on 12/16/2024 Vital signs are reviewed and remained stable Patient is being followed by surgery; recommending to continue with Flomax for urinary retention; pain management as discussed earlier -Patient is recommended ECF placement; case management on board -Discharge when arrangements are made 12/21/2024 Patient is seen and evaluated in room; denies any specific complaints; discussed with nursing staff; no specific concerns reported Vital signs are reviewed and stable with temperature of 98.5, pulse 81, respirations 16 and blood pressure 125/69 with O2 saturation 96% on room air Lab reviewed from 12/18/2024 shows WBC 8.9, hemoglobin of 15.4 and platelet count of 157, sodium 138, potassium 4.3, BUNs/creatinine of 25/0.97 -Patient awaits placement to ECF once arrangements are made; patient will need a guardian appointed prior to transition; case management on board 12/22 No new complaint Pending guardianship which might take up to a week per pillowcase sewer Objective - Vital Signs Vital signs: Vital Signs Temp 98 F 12/22/24 07:00 Pulse 78 12/22/24 07:00 Resp 16 12/22/24 07:00 BP 143/67 12/22/24 07:00 Pulse Ox 98 12/22/24 07:00 FiO2 Intake & Output 12/21/24 12/22/24 12/22/24 18:59 06:59 18:59 Intake Total 354 118 Balance 354 118 Intake: Oral 354 118 Other: Voiding Method Toilet Toilet Toilet Urinal Urinal Urinal # Voids 5 2 1 # Bowel Movements 1 1 - Exam -GENERAL: The patient is alert and oriented x 2-3 partial, not in any acute distress. Well developed, well nourished. Generally weak HEENT: Pupils are round and equally reacting to light. EOMI. No scleral icterus. No conjunctival pallor. Normocephalic, atraumatic. No pharyngeal erythema. No thyromegaly. CARDIOVASCULAR: S1 and S2 present. No murmurs, rubs, or gallops. PULMONARY: Chest is clear to auscultation, no wheezing , no crackles. -ABDOMEN: Soft, nontender, nondistended, normoactive bowel sounds. No palpable organomegaly. Left inguinal wound is closed and healing MUSCULOSKELETAL: No joint swelling or deformity. EXTREMITIES: No cyanosis, clubbing, or pedal edema. NEUROLOGICAL: Gross neurological examination did not reveal any focal deficits. SKIN: No rashes. no petechiae. - Labs CBC & Chem 7: 12/18/24 15:35 12/18/24 15:35 Assessment and Plan Assessment: Fall without syncope Mild metabolic encephalopathy Acute urinary retention Left inguinal hernia s/p elective repair on 12/16 Hypertension Require placement Plan: Continue with pain management Continue supportive care Close monitoring Surgery team following closely Check labs Labs and medication were reviewed.. Continue same treatment. Continue with symptomatic treatment. Resume home medication. Monitor labs and vitals. DVT and GI prophylaxis. Further recommendations as per clinical course of the patient DVT prophylaxis: Subcutaneous heparin GI Prophylaxis: Pepcid PT/OT: Pending pole frame construction worker on the case for placement Prognosis is guarded
--- NOTE | 2024-12-23 12:31 | P.PN ---
Subjective This is a pleasant 89 years old male who was admitted by surgery team for elective left inguinal hernia status postrepair Developed acute urinary turned tension, currently Poole catheter was removed. Patient was mildly confused but it looks improvement, last night he fell, CT of the brain was negative for acute process Today he is awake alert mildly confused, he follows command, he has insight into his illness. His left inguinal wound is healing He denies chest pain or dyspnea. No abdominal pain vomiting or diarrhea. No specific urinary symptoms. He is hemodynamically stable and afebrile. CBC was checked 2 days ago was unremarkable with no leukocytosis. Looks like also patient has difficulty with placement, social work faculty member on the case. Patient may need guardianship 12/20/2024 Patient seen and evaluated resting comfortably in bed; very hard of hearing; patient is status post left inguinal hernia repair on 12/16/2024 Vital signs are reviewed and remained stable Patient is being followed by surgery; recommending to continue with Flomax for urinary retention; pain management as discussed earlier -Patient is recommended ECF placement; case management on board -Discharge when arrangements are made 12/21/2024 Patient is seen and evaluated in room; denies any specific complaints; discussed with nursing staff; no specific concerns reported Vital signs are reviewed and stable with temperature of 98.5, pulse 81, respirations 16 and blood pressure 125/69 with O2 saturation 96% on room air Lab reviewed from 12/18/2024 shows WBC 8.9, hemoglobin of 15.4 and platelet count of 157, sodium 138, potassium 4.3, BUNs/creatinine of 25/0.97 -Patient awaits placement to ECF once arrangements are made; patient will need a guardian appointed prior to transition; case management on board 12/22 No new complaint Pending guardianship which might take up to a week per field case manager 12/23 Patient is asymptomatic Patient pending placement after getting guardianship Objective - Vital Signs Vital signs: Vital Signs Temp 97.5 F L 12/23/24 07:00 Pulse 65 12/23/24 07:00 Resp 16 12/23/24 07:00 BP 121/66 12/23/24 07:00 Pulse Ox 98 12/23/24 07:00 FiO2 Intake & Output 12/22/24 12/23/24 12/23/24 18:59 06:59 18:59 Intake Total 457 236 Output Total 200 Balance 457 -200 236 Intake: Oral 457 236 Output: Urine 200 Other: Voiding Method Toilet Toilet Toilet Urinal Urinal # Voids 3 1 # Bowel Movements 1 - Exam -GENERAL: The patient is alert and oriented x 2-3 partial, not in any acute distress. Well developed, well nourished. Generally weak HEENT: Pupils are round and equally reacting to light. EOMI. No scleral icterus. No conjunctival pallor. Normocephalic, atraumatic. No pharyngeal erythema. No thyromegaly. CARDIOVASCULAR: S1 and S2 present. No murmurs, rubs, or gallops. PULMONARY: Chest is clear to auscultation, no wheezing , no crackles. -ABDOMEN: Soft, nontender, nondistended, normoactive bowel sounds. No palpable organomegaly. Left inguinal wound is closed and healing MUSCULOSKELETAL: No joint swelling or deformity. EXTREMITIES: No cyanosis, clubbing, or pedal edema. NEUROLOGICAL: Gross neurological examination did not reveal any focal deficits. SKIN: No rashes. no petechiae. - Labs CBC & Chem 7: 12/18/24 15:35 12/18/24 15:35 Assessment and Plan Assessment: Fall without syncope Mild metabolic encephalopathy Acute urinary retention Left inguinal hernia s/p elective repair on 12/16 Hypertension Require placement Plan: Continue with pain management Continue supportive care Close monitoring Surgery team following closely Check labs Labs and medication were reviewed.. Continue same treatment. Continue with symptomatic treatment. Resume home medication. Monitor labs and vitals. DVT and GI prophylaxis. Further recommendations as per clinical course of the p atient DVT prophylaxis: Subcutaneous heparin GI Prophylaxis: Pepcid PT/OT: Pending washtub worker on the case for placement Prognosis is guarded
--- NOTE | 2024-12-23 13:47 | P.PN ---
Subjective Progress Note Date: 12/23/24 SURGICAL PROGRESS NOTE CHIEF COMPLAINT: Left inguinal hernia HISTORY OF PRESENT ILLNESS: Patient is postop day #5 status post laparoscopic robotic repair of left inguinal hernia. No new complaints. Tolerating diet. PHYSICAL EXAM: VITAL SIGNS: Reviewed. GENERAL: Well-developed in no acute distress. ABDOMEN: Soft. Nondistended. Incision sites clean dry and intact ASSESSMENT: 1. Left inguinal hernia PLAN: -Social work working on guardianship and ECF placement -Patient is stable for discharge from surgical standpoint when medically cleared and placement is arranged -DVT prophylaxis subcu heparin Physician Country Sales Manager note has been reviewed by physician. Signing provider agrees with the documented findings, assessment, and plan of care. Objective - Vital Signs Vital signs: Vital Signs Temp 97.5 F L 12/23/24 07:00 Pulse 65 12/23/24 07:00 Resp 16 12/23/24 07:00 BP 121/66 12/23/24 07:00 Pulse Ox 98 12/23/24 07:00 FiO2 Intake & Output 12/22/24 12/23/24 12/23/24 18:59 06:59 18:59 Intake Total 457 236 Output Total 200 Balance 457 -200 236 Intake: Oral 457 236 Output: Urine 200 Other: Voiding Method Toilet Toilet Toilet Urinal Urinal # Voids 3 1 # Bowel Movements 1 - Labs CBC & Chem 7: 12/18/24 15:35 12/18/24 15:35
[2024-12-23 15:53] VITALS: BMI 20.7
--- NOTE | 2024-12-24 13:46 | P.CN ---
Psychiatric Consult - . Consult date: 12/24/24 Consult:: 12/24/24 13:39 IDENTIFYING DATA: This patient is a 89-year-old male, living independently REASON FOR REFERRAL: Psychiatry was consulted for competency HISTORY OF PRESENT ILLNESS: The patient presented to the hospital for repair of left inguinal hernia. Patient is awaiting placement pending guardianship hearing scheduled for 12/26. OT recommend subacute rehab however patient is wanting to return home. Patient seen and evaluated in his room. He was A&Ox4 with 2/3 delayed recall. He expresses being healthy overall and not taking any medications at home. He states living independently as he has no children and has never been . He does express having neighbors who are willing to look after him. Discussed with patient the recommendations is team are making in regards to going to a long-term care facility however patient was unable to elicit any risks or benefits in terms of going to a subacute rehab versus going home. He states not needing anyone to take care of him. He was not able to elicit any alternatives to this. At this time patient denies any suicidal or homical ideations, intent or plan. Patient denies any auditory, visual hallucinations and denies any paranoia or delusions. PAST PSYCHIATRIC HISTORY: Patient has no past psych history. Patient denies being on any psychiatric medications. Patient denies any previous psychiatric hospitalizations. Patient denies any psychiatric outpatient follow-up. Patient denies any history of suicide attempts in the past. PAST MEDICAL HISTORY: Denies. ALLERGIES: as per EMR. CHEMICAL DEPENDENCY HISTORY: as per HPI. FAMILY PSYCHIATRIC/SUBSTANCE USE HISTORY: Denies SOCIAL HISTORY: Patient is single and has no children. He lives alone. He is retired. MENTAL STATUS EXAM: General Appearance: Patient appears to be stated age is alert, pleasant, and cooperative. Patient appears to have fair hygiene and grooming wearing hospital gown with fair eye contact. Behavior: Patient is calmly lying in bed without any agitated behavior. Speech: Patient's speech is fluent and nonpressured. Mood/Affect: Patient reports their mood is "good", affect is congruent Suicidality/Homicidality: Patient denies having any suicidal or homicidal ideation intent or plan. Perceptions: Patient denies any visual hallucinations and denies any auditory hallucinations Though content/process: There is no evidence of any delusional thought content and thought process is linear and goal-directed. Memory and concentration: AOX3, grossly intact for the purposes of this session. 2/3 on delayed recall Judgment and insight: Poor IMPRESSIONS: Unspecified neurocognitive disorder Delirium, improving PLAN: -At this time patient DOES NOT meet criteria for inpatient psychiatric admission. -Patient DOES NOT have decision making capacity at this time and is unable to reason through and communicate/appreciate the risks, benefits and alternatives to treatment. -Delirium precautions recommended with patient including - avoiding use of narcotics and DELINQUENCY COUNSELOR sedatives, limit anticholinergic medications when possible, frequent re-orientation, minimize use of restraints, open window shades during the day and close them at night -Would recommend the following medication changes/additions: none -Communicated plan to patient's nurse -Psychiatry will sign off at this time -Please contact with any questions.
--- NOTE | 2024-12-24 13:52 | P.PN ---
Subjective Progress Note Date: 12/24/24 SURGICAL PROGRESS NOTE CHIEF COMPLAINT: Left inguinal hernia HISTORY OF PRESENT ILLNESS: Patient is postop day #6 status post laparoscopic robotic repair of left inguinal hernia. No new complaints. Tolerating diet. PHYSICAL EXAM: VITAL SIGNS: Reviewed. GENERAL: Well-developed in no acute distress. ABDOMEN: Soft. Nondistended. Incision sites clean dry and intact ASSESSMENT: 1. Left inguinal hernia PLAN: -Social work working on guardianship and ECF placement -Patient is stable for discharge from surgical standpoint when medically cleared and placement is arranged Physician Staff Midwife/Apprenticeship Director note has been reviewed by physician. Signing provider agrees with the documented findings, assessment, and plan of care. Objective - Vital Signs Vital signs: Vital Signs Temp 98 F 12/24/24 07:00 Pulse 80 12/24/24 07:00 Resp 16 12/24/24 07:00 BP 146/69 12/24/24 07:00 Pulse Ox 97 12/24/24 07:00 FiO2 Intake & Output 12/23/24 12/24/24 12/24/24 18:59 06:59 18:59 Intake Total 354 Output Total 500 100 Balance 354 -500 -100 Weight 63.503 kg Intake: Oral 354 Output: Urine 500 100 Other: Voiding Method Toilet Toilet Urinal Urinal Urinal # Voids 3 1 1 - Labs CBC & Chem 7: 12/18/24 15:35 12/18/24 15:35
--- NOTE | 2024-12-24 13:56 | P.PN ---
Subjective Progress Note Date: 12/24/24 Principal diagnosis: Hospital course: This is a pleasant 89 years old male who was admitted by surgery team for elective left inguinal hernia status postrepair Developed acute urinary turned tension, currently Poole catheter was removed. Patient was mildly confused but it looks improvement, last night he fell, CT of the brain was negative for acute process Today he is awake alert mildly confused, he follows command, he has insight into his illness. His left inguinal wound is healing He denies chest pain or dyspnea. No abdominal pain vomiting or diarrhea. No specific urinary symptoms. He is hemodynamically stable and afebrile. CBC was checked 2 days ago was unremarkable with no leukocytosis. Looks like also patient has difficulty with placement, social secretary on the case. Patient may need guardianship 12/20/2024 Patient seen and evaluated resting comfortably in bed; very hard of hearing; patient is status post left inguinal hernia repair on 12/16/2024 Vital signs are reviewed and remained stable Patient is being followed by surgery; recommending to continue with Flomax for urinary retention; pain management as discussed earlier -Patient is recommended ECF placement; case management on board -Discharge when arrangements are made 12/21/2024 Patient is seen and evaluated in room; denies any specific complaints; discussed with nursing staff; no specific concerns reported Vital signs are reviewed and stable with temperature of 98.5, pulse 81, respirations 16 and blood pressure 125/69 with O2 saturation 96% on room air Lab reviewed from 12/18/2024 shows WBC 8.9, hemoglobin of 15.4 and platelet count of 157, sodium 138, potassium 4.3, BUNs/creatinine of 25/0.97 -Patient awaits placement to ECF once arrangements are made; patient will need a guardian appointed prior to transition; case management on board 12/22 No new complaint Pending guardianship which might take up to a week per briefcase sewer 12/23 Patient is asymptomatic Patient pending placement after getting guardianship 12/24/24: Patient seen and examined at bedside today. Patient states desire to go home. He refused rehab placement. Agreed to home with home care. Patient is confused per nursing. He is awaiting guardianship hearing. Review of systems: Pertinent positives and negatives as discussed in HPI, a complete review of systems was performed and all other systems are negative. Vitals: Signs Reviewed Physical examination: General: nontoxic, no distress, appears at stated age, Generally weak Derm: warm, dry, intact Head: atraumatic, normocephalic, symmetric Eyes: EOMI, anicteric sclera Mouth: no lip lesion, mucus membranes moist Cardiovascular: S1 S2 reg, no murmur Lungs: CTA bilateral, no rhonchi, no rales, no accessory muscle use Abdominal: soft, non-tender to palpation, Left inguinal wound is closed and healing Extremities: No cyanosis, clubbing, or pedal edema. Neuro: alert and oriented x 2-3 partial Gross neurological examination did not reveal any focal deficits. Psych: well appearing, appropriate affect Assessment/Plan: #. Acute Urinary retention Continue Tamsulosin 0.4 mg PO daily #. Mild metabolic encephalopathy #. Fall without syncope Patient refused rehab placement. Agreed to home with home care Patient awaiting guardianship hearing Close monitoring Social worjer on the case #. Hypertension Continue Amlodipine 5 mg PO daily #. Left inguinal hernia #. S/p elective repair 12/16/24 Continue with pain management per general surgery Continue supportive care General surgery is following, recommend patient is stable for discharge from surgical standpoint F: None E: Replete as required N: Consistent carbohydrate diet DVT prophylaxis: Subcutaneous heparin and SCD Attestation I have seen and examined this patient with my resident , discussed the same with the resident/DIANA, and agree with the dictator's assessment and plan as written GENERAL: The patient is alert and oriented x1-2, not in any acute distress. Well developed, well nourished. HEENT: Pupils are round and equally reacting to light. EOMI. No scleral icterus. No conjunctival pallor. Normocephalic, atraumatic. No pharyngeal erythema. No thyromegaly. CARDIOVASCULAR: S1 and S2 present. No murmurs, rubs, or gallops. PULMONARY: Chest is clear to auscultation, no wheezing or crackles. ABDOMEN: Soft, nontender, nondistended, normoactive bowel sounds. No palpable organomegaly. MUSCULOSKELETAL: No joint swelling or deformity. EXTREMITIES: No cyanosis, clubbing, or pedal edema. NEUROLOGICAL: Gross neurological examination did not reveal any focal deficits. SKIN: No rashes. Dr. Abhishek lombardi Objective - Vital Signs Vital signs: Vital Signs Temp 98 F 12/24/24 07:00 Pulse 80 12/24/24 07:00 Resp 16 12/24/24 07:00 BP 146/69 12/24/24 07:00 Pulse Ox 97 12/24/24 07:00 FiO2 Intake & Output 12/23/24 12/24/24 12/24/24 18:59 06:59 18:59 Intake Total 354 Output Total 500 Balance 354 -500 Weight 63.503 kg Intake: Oral 354 Output: Urine 500 Other: Voiding Method Toilet Toilet Urinal Urinal # Voids 3 1 - Labs CBC & Chem 7: 12/18/24 15:35 12/18/24 15:35
[2024-12-24] MEDS ORDERED: HALOPERIDOL LACTATE 5 MG/ML 1 ML VIAL IM PRN (16:24)
[2024-12-24] MEDS ORDERED: QUEtiapine 25 MG TAB PO PRN (16:25)
[2024-12-24] MEDS: QUEtiapine 25 MG TAB PO STA (16:26)
--- NOTE | 2024-12-25 10:51 | P.PN ---
Subjective Progress Note Date: 12/25/24 Principal diagnosis: Hospital course: This is a pleasant 89 years old male who was admitted by surgery team for elective left inguinal hernia status postrepair Developed acute urinary turned tension, currently Poole catheter was removed. Patient was mildly confused but it looks improvement, last night he fell, CT of the brain was negative for acute process Today he is awake alert mildly confused, he follows command, he has insight into his illness. His left inguinal wound is healing He denies chest pain or dyspnea. No abdominal pain vomiting or diarrhea. No specific urinary symptoms. He is hemodynamically stable and afebrile. CBC was checked 2 days ago was unremarkable with no leukocytosis. Looks like also patient has difficulty with placement, social service agency director on the case. Patient may need guardianship 12/20/2024 Patient seen and evaluated resting comfortably in bed; very hard of hearing; patient is status post left inguinal hernia repair on 12/16/2024 Vital signs are reviewed and remained stable Patient is being followed by surgery; recommending to continue with Flomax for urinary retention; pain management as discussed earlier -Patient is recommended ECF placement; case management on board -Discharge when arrangements are made 12/21/2024 Patient is seen and evaluated in room; denies any specific complaints; discussed with nursing staff; no specific concerns reported Vital signs are reviewed and stable with temperature of 98.5, pulse 81, respirations 16 and blood pressure 125/69 with O2 saturation 96% on room air Lab reviewed from 12/18/2024 shows WBC 8.9, hemoglobin of 15.4 and platelet count of 157, sodium 138, potassium 4.3, BUNs/creatinine of 25/0.97 -Patient awaits placement to ECF once arrangements are made; patient will need a guardian appointed prior to transition; case management on board 12/22 No new complaint Pending guardianship which might take up to a week per case managers 12/23 Patient is asymptomatic Patient pending placement after getting guardianship 12/24/24: Patient seen and examined at bedside today. Patient states desire to go home. He refused rehab placement. Agreed to home with home care. Patient is confused per nursing. He is awaiting guardianship hearing. 12/25/24: Patient evalauted at bedside today. Last night patient agitated, yelling and aggressive toward staff and attempting to leave. Jacques Kilgore called at 16:10. Stat dose of PO seroquel administered and patient seemed to be settled down after that. Review of systems: Pertinent positives and negatives as discussed in HPI, a complete review of systems was performed and all other systems are negative. Vitals: Signs Reviewed Physical examination: General: nontoxic, no distress, appears at stated age, Generally weak Derm: warm, dry, intact Head: atraumatic, normocephalic, symmetric Eyes: EOMI, anicteric sclera Mouth: no lip lesion, mucus membranes moist Cardiovascular: S1 S2 reg, no murmur Lungs: CTA bilateral, no rhonchi, no rales, no accessory muscle use Abdominal: soft, non-tender to palpation, Left inguinal wound is closed and healing Extremities: No cyanosis, clubbing, or pedal edema. Neuro: alert and oriented x 2-3 partial Gross neurological examination did not reveal any focal deficits. Psych: well appearing, appropriate affect Assessment/Plan: #. Mild metabolic encephalopathy #. Fall without syncope Close monitoring Patient refused rehab placement. Agreed to home with home care Psychiatrist consulted, recommend patient DOES NOT have decision making capacity at this time and is unable to reason through and communicate/appreciate the risks, benefits and alternatives to treatment Patient awaiting guardianship hearing on 12/26/24 D/C plan pending outcome of guardianship hearing and patient's level of funct ioning wood and wood products factory worker on the case Seroquel 12.5 mg PO HS PRN and Haldol 1 mg IM once PRN for agitation or acute anxiety #. Acute Urinary retention Continue Tamsulosin 0.4 mg PO daily #. Hypertension Continue Amlodipine 5 mg PO daily #. Left inguinal hernia #. S/p elective repair 12/16/24 Continue with pain management per general surgery Continue supportive care General surgery is following, recommend patient is stable for discharge from surgical standpoint F: None E: Replete as required N: Consistent carbohydrate diet DVT prophylaxis: Subcutaneous heparin and SCD Attestation I have seen and examined this patient with my resident , discussed the same with the resident/DIANA, and agree with the dictator's assessment and plan as written GENERAL: The patient is alert to self and place HEENT: Pupils are round and equally reacting to light. EOMI. No scleral icterus. No conjunctival pallor. Normocephalic, atraumatic. No pharyngeal erythema. No thyromegaly. CARDIOVASCULAR: S1 and S2 present. No murmurs, rubs, or gallops. PULMONARY: Chest is clear to auscultation, no wheezing or crackles. ABDOMEN: Soft, nontender, nondistended, normoactive bowel sounds. No palpable organomegaly. MUSCULOSKELETAL: No joint swelling or deformity. EXTREMITIES: No cyanosis, clubbing, or pedal edema. NEUROLOGICAL: Gross neurological examination did not reveal any focal deficits. SKIN: No rashes. Dr. Abhishek lombardi Objective - Vital Signs Vital signs: Vital Signs Temp 97.4 F L 12/25/24 01:21 Pulse 79 12/25/24 01:21 Resp 17 12/25/24 01:21 BP 129/70 12/25/24 01:21 Pulse Ox 95 12/25/24 01:21 FiO2 Intake & Output 12/24/24 12/25/24 12/25/24 18:59 06:59 18:59 Intake Total 221 Output Total 350 600 Balance -129 -600 Intake: Oral 221 Output: Urine 350 600 Other: Voiding Method Toilet Toilet Urinal Urinal # Voids 3 1 - Labs CBC & Chem 7: 12/18/24 15:35 12/18/24 15:35
--- NOTE | 2024-12-25 12:47 | P.PN ---
Subjective Progress Note Date: 12/25/24 SURGICAL PROGRESS NOTE CHIEF COMPLAINT: Left inguinal hernia HISTORY OF PRESENT ILLNESS: Patient is postop day #7 status post laparoscopic robotic repair of left inguinal hernia. No new complaints. Tolerating diet. PHYSICAL EXAM: VITAL SIGNS: Reviewed. GENERAL: Well-developed in no acute distress. ABDOMEN: Soft. Nondistended. Incision sites clean dry and intact ASSESSMENT: 1. Left inguinal hernia PLAN: -Social work working on guardianship and ECF placement -Patient is stable for discharge from surgical standpoint when medically cleared and placement is arranged Physician Doughmaker note has been reviewed by physician. Signing provider agrees with the documented findings, assessment, and plan of care. Objective - Vital Signs Vital signs: Vital Signs Temp 97.9 F 12/25/24 07:00 Pulse 70 12/25/24 07:00 Resp 18 12/25/24 07:00 BP 120/70 12/25/24 07:00 Pulse Ox 97 12/25/24 07:00 FiO2 Intake & Output 12/24/24 12/25/24 12/25/24 18:59 06:59 18:59 Intake Total 221 118 Output Total 350 600 Balance -129 -600 118 Intake: Oral 221 118 Output: Urine 350 600 Other: Voiding Method Toilet Toilet Urinal Urinal # Voids 3 1 - Labs CBC & Chem 7: 12/18/24 15:35 12/18/24 15:35
[2024-12-25] MEDS: QUEtiapine 25 MG TAB PO PRN (17:23)
--- NOTE | 2024-12-26 12:26 | P.PN ---
Subjective Progress Note Date: 12/26/24 SURGICAL PROGRESS NOTE CHIEF COMPLAINT: Left inguinal hernia HISTORY OF PRESENT ILLNESS: Patient is postop day #8 status post laparoscopic robotic repair of left inguinal hernia. No new complaints. Tolerating diet. PHYSICAL EXAM: VITAL SIGNS: Reviewed. GENERAL: Well-developed in no acute distress. ABDOMEN: Soft. Nondistended. Incision sites clean dry and intact ASSESSMENT: 1. Left inguinal hernia PLAN: -Social work working on guardianship and ECF placement -Patient is stable for discharge from surgical standpoint when medically cleared and placement is arranged Physician Wood Model Builder note has been reviewed by physician. Signing provider agrees with the documented findings, assessment, and plan of care. Objective - Vital Signs Vital signs: Vital Signs Temp 98.2 F 12/26/24 07:00 Pulse 62 12/26/24 07:00 Resp 16 12/26/24 07:00 BP 128/74 12/26/24 07:00 Pulse Ox 94 L 12/26/24 07:00 FiO2 Intake & Output 12/25/24 12/26/24 12/26/24 18:59 06:59 18:59 Intake Total 236 118 Output Total 250 250 Balance -14 -132 Intake: Oral 236 118 Output: Urine 250 250 Other: Voiding Method Toilet Toilet Toilet Urinal Urinal Urinal # Voids 1 4 - Labs CBC & Chem 7: 12/18/24 15:35 12/18/24 15:35
[2024-12-26] MEDS: polyethylene glycoL 3350 17 GM POWD.PACK PO SCH (13:15)
--- NOTE | 2024-12-26 13:21 | P.PN ---
Subjective Progress Note Date: 12/26/24 Principal diagnosis: Hospital course: This is a pleasant 89 years old male who was admitted by surgery team for elective left inguinal hernia status postrepair Developed acute urinary turned tension, currently Poole catheter was removed. Patient was mildly confused but it looks improvement, last night he fell, CT of the brain was negative for acute process Today he is awake alert mildly confused, he follows command, he has insight into his illness. His left inguinal wound is healing He denies chest pain or dyspnea. No abdominal pain vomiting or diarrhea. No specific urinary symptoms. He is hemodynamically stable and afebrile. CBC was checked 2 days ago was unremarkable with no leukocytosis. Looks like also patient has difficulty with placement, nursing home social worker on the case. Patient may need guardianship 12/20/2024 Patient seen and evaluated resting comfortably in bed; very hard of hearing; patient is status post left inguinal hernia repair on 12/16/2024 Vital signs are reviewed and remained stable Patient is being followed by surgery; recommending to continue with Flomax for urinary retention; pain management as discussed earlier -Patient is recommended ECF placement; case management on board -Discharge when arrangements are made 12/21/2024 Patient is seen and evaluated in room; denies any specific complaints; discussed with nursing staff; no specific concerns reported Vital signs are reviewed and stable with temperature of 98.5, pulse 81, respirations 16 and blood pressure 125/69 with O2 saturation 96% on room air Lab reviewed from 12/18/2024 shows WBC 8.9, hemoglobin of 15.4 and platelet count of 157, sodium 138, potassium 4.3, BUNs/creatinine of 25/0.97 -Patient awaits placement to ECF once arrangements are made; patient will need a guardian appointed prior to transition; case management on board 12/22 No new complaint Pending guardianship which might take up to a week per case therapist 12/23 Patient is asymptomatic Patient pending placement after getting guardianship 12/24/24: Patient seen and examined at bedside today. Patient states desire to go home. He refused rehab placement. Agreed to home with home care. Patient is confused per nursing. He is awaiting guardianship hearing. 12/25/24: Patient evalauted at bedside today. Last night patient agitated, yelling and aggressive toward staff and attempting to leave. Jacques Kilgore called at 16:10. Stat dose of PO seroquel administered and patient seemed to be settled down after that. 12/26/24: Patient examined today. Yesterday afternoon patient became agitated again, PO Seroquel 12.5 mg administered. Review of systems: Pertinent positives and negatives as discussed in HPI, a complete review of systems was performed and all other systems are negative. Vitals: Signs Reviewed Physical examination: General: nontoxic, no distress, appears at stated age, Generally weak Derm: warm, dry, intact Head: atraumatic, normocephalic, symmetric Eyes: EOMI, anicteric sclera Mouth: no lip lesion, mucus membranes moist Cardiovascular: S1 S2 reg, no murmur Lungs: CTA bilateral, no rhonchi, no rales, no accessory muscle use Abdominal: soft, non-tender to palpation, Left inguinal wound is closed and healing Extremities: No cyanosis, clubbing, or pedal edema. Neuro: alert and oriented x 2-3 partial Gross neurological examination did not reveal any focal deficits. Psych: well appearing, appropriate affect Assessment/Plan: #. Mild metabolic encephalopathy #. Fall without syncope Close monitoring Patient refused rehab placement. Agreed to home with home care Psychiatrist consulted, recommend patient DOES NOT have decision making capacity at this time and is unable to reason through and communicate/appreciate the risks, benefits and alternatives to treatment Patient awaiting guardianship hearing on 12/26/24 at 1:30 pm. D/C plan pending outcome of guardianship hearing and patient's level of functioning maintenance worker house trailer on the case Seroquel 12.5 mg PO daily PRN and Haldol 1 mg IM once PRN for agitation or acute anxiety #. Acute Urinary retention Continue Tamsulosin 0.4 mg PO daily #. Hypertension Continue Amlodipine 5 mg PO daily #. Left inguinal hernia #. S/p elective repair 12/16/24 Continue with pain management per general surgery Continue supportive care General surgery is following, recommend patient is stable for discharge from surgical standpoint F: None E: Replete as required N: Consistent carbohydrate diet DVT prophylaxis: Subcutaneous heparin and SCD Attestation I have seen and examined this patient with my resident , discussed the same with the resident/DIANA, and agree with the dictator's assessment and plan as written GENERAL: The patient is alert and oriented x2, not in any acute distress. Well developed, well nourished. HEENT: Pupils are round and equally reacting to light. EOMI. No scleral icterus. No conjunctival pallor. Normocephalic, atraumatic. No pharyngeal erythema. No thyromegaly. CARDIOVASCULAR: S1 and S2 present. No murmurs, rubs, or gallops. PULMONARY: Chest is clear to auscultation, no wheezing or crackles. ABDOMEN: Soft, nontender, nondistended, normoactive bowel sounds. No palpable organomegaly. MUSCULOSKELETAL: No joint swelling or deformity. EXTREMITIES: No cyanosis, clubbing, or pedal edema. NEUROLOGICAL: Gross neurological examination did not reveal any focal deficits. SKIN: No rashes. Dr. Abhishek lombardi Objective - Vital Signs Vital signs: Vital Signs Temp 98.2 F 12/26/24 07:00 Pulse 62 12/26/24 07:00 Resp 16 12/26/24 07:00 BP 128/74 12/26/24 07:00 Pulse Ox 94 L 12/26/24 07:00 FiO2 Intake & Output 12/25/24 12/26/24 12/26/24 18:59 06:59 18:59 Intake Total 236 Output Total 250 Balance -14 Intake: Oral 236 Output: Urine 250 Other: Voiding Method Toilet Toilet Urinal Urinal # Voids 1 4 - Labs CBC & Chem 7: 12/18/24 15:35 12/18/24 15:35
[2024-12-26] MEDS: QUEtiapine 25 MG TAB PO PRN (17:40)
[2024-12-26] MEDS: DOCUSATE 100 MG CAP PO SCH (20:14)
[2024-12-26] MEDS ORDERED: QUEtiapine 25 MG TAB PO SCH (21:00)
--- NOTE | 2024-12-27 12:51 | P.PN ---
Subjective Progress Note Date: 12/27/24 Principal diagnosis: Hospital course: This is a pleasant 89 years old male who was admitted by surgery team for elective left inguinal hernia status postrepair Developed acute urinary turned tension, currently Poole catheter was removed. Patient was mildly confused but it looks improvement, last night he fell, CT of the brain was negative for acute process Today he is awake alert mildly confused, he follows command, he has insight into his illness. His left inguinal wound is healing He denies chest pain or dyspnea. No abdominal pain vomiting or diarrhea. No specific urinary symptoms. He is hemodynamically stable and afebrile. CBC was checked 2 days ago was unremarkable with no leukocytosis. Looks like also patient has difficulty with placement, social work specialist on the case. Patient may need guardianship 12/20/2024 Patient seen and evaluated resting comfortably in bed; very hard of hearing; patient is status post left inguinal hernia repair on 12/16/2024 Vital signs are reviewed and remained stable Patient is being followed by surgery; recommending to continue with Flomax for urinary retention; pain management as discussed earlier -Patient is recommended ECF placement; case management on board -Discharge when arrangements are made 12/21/2024 Patient is seen and evaluated in room; denies any specific complaints; discussed with nursing staff; no specific concerns reported Vital signs are reviewed and stable with temperature of 98.5, pulse 81, respirations 16 and blood pressure 125/69 with O2 saturation 96% on room air Lab reviewed from 12/18/2024 shows WBC 8.9, hemoglobin of 15.4 and platelet count of 157, sodium 138, potassium 4.3, BUNs/creatinine of 25/0.97 -Patient awaits placement to ECF once arrangements are made; patient will need a guardian appointed prior to transition; case management on board 12/22 No new complaint Pending guardianship which might take up to a week per case making machine operator 12/23 Patient is asymptomatic Patient pending placement after getting guardianship 12/24/24: Patient seen and examined at bedside today. Patient states desire to go home. He refused rehab placement. Agreed to home with home care. Patient is confused per nursing. He is awaiting guardianship hearing. 12/25/24: Patient evalauted at bedside today. Last night patient agitated, yelling and aggressive toward staff and attempting to leave. Jacques Kilgore called at 16:10. Stat dose of PO seroquel administered and patient seemed to be settled down after that. 12/26/24: Patient examined today. Yesterday afternoon patient became agitated again, PO Seroquel 12.5 mg administered. 12/27/24: Patient seen and examined at bedside today. Patient had a bowel movement after adding stool softeners. At the [facility] hearing yesterday public guardian was appointed as legal guardian. Review of systems: Pertinent positives and negatives as discussed in HPI, a complete review of systems was performed and all other systems are negative. Vitals: Signs Reviewed Physical examination: General: nontoxic, no distress, appears at stated age, Generally weak Derm: warm, dry, intact Head: atraumatic, normocephalic, symmetric Eyes: EOMI, anicteric sclera Mouth: no lip lesion, mucus membranes moist Cardiovascular: S1 S2 reg, no murmur Lungs: CTA bilateral, no rhonchi, no rales, no accessory muscle use Abdominal: soft, non-tender to palpation, Left inguinal wound is closed and healing Extremities: No cyanosis, clubbing, or pedal edema. Neuro: alert and oriented x 2-3 partial Gross neurological examination did not reveal any focal deficits. Psych: well appearing, appropriate affect Assessment/Plan: #. Mild metabolic encephalopathy #. Fall without syncope Close monitoring Patient refused rehab placement. Agreed to home with home care Psychiatrist consulted, recommend patient DOES NOT have decision making capacity at this time and is unable to reason through and communicate/appreciate the risks, benefits and alternatives to treatment At the [facility] hearing yesterday public guardian was appointed as legal guardian. D/C plan pending accepting facility and obtaining prior Auth manufacturing worker on the case Seroquel 12.5 mg PO daily PRN and Haldol 1 mg IM once PRN for agitation or acute anxiety #. Constipation Continue Miralax 17 g p.o. twice daily and Colace 100 mg p.o. twice daily #. Acute Urinary retention Continue Tamsulosin 0.4 mg PO daily #. Hypertension Continue Amlodipine 5 mg PO daily #. Left inguinal hernia #. S/p elective repair 12/16/24 Continue with pain management per general surgery Continue supportive care General surgery is following, recommend patient is stable for discharge from surgical standpoint F: None E: Replete as required N: Regular diet DVT prophylaxis: Subcutaneous heparin and SCD Attestation I have seen and examined this patient with my resident , discussed the same with the resident/DIANA, and agree with the dictator's assessment and plan as written GENERAL: The patient is alert and oriented x 2-3, not in any acute distress. Well developed, well nourished. HEENT: Pupils are round and equally reacting to light. EOMI. No scleral icterus. No conjunctival pallor. Normocephalic, atraumatic. No pharyngeal erythema. No thyromegaly. CARDIOVASCULAR: S1 and S2 present. No murmurs, rubs, or gallops. PULMONARY: Chest is clear to auscultation, no wheezing or crackles. ABDOMEN: Soft, nontender, nondistended, normoactive bowel sounds. No palpable organomegaly. MUSCULOSKELETAL: No joint swelling or deformity. EXTREMITIES: No cyanosis, clubbing, or pedal edema. NEUROLOGICAL: Gross neurological examination did not reveal any focal deficits. SKIN: No rashes. Dr. Abhishek lombardi Objective - Vital Signs Vital signs: Vital Signs Temp 97.5 F L 12/27/24 07:00 Pulse 48 L 12/27/24 07:00 Resp 17 12/27/24 07:00 BP 114/65 12/27/24 07:00 Pulse Ox 97 12/27/24 07:00 FiO2 Intake & Output 12/26/24 12/27/24 12/27/24 18:59 06:59 18:59 Intake Total 339 118 Output Total 650 Balance -311 118 Intake: Oral 339 118 Output: Urine 650 Other: Voiding Method Toilet Toilet Urinal Urinal # Voids 1 3 # Bowel Movements 1 - Labs CBC & Chem 7: 12/18/24 15:35 12/18/24 15:35
--- NOTE | 2024-12-28 13:24 | P.PN ---
Subjective Progress Note Date: 12/28/24 Principal diagnosis: Hospital course: This is a pleasant 89 years old male who was admitted by surgery team for elective left inguinal hernia status postrepair Developed acute urinary turned tension, currently Poole catheter was removed. Patient was mildly confused but it looks improvement, last night he fell, CT of the brain was negative for acute process Today he is awake alert mildly confused, he follows command, he has insight into his illness. His left inguinal wound is healing He denies chest pain or dyspnea. No abdominal pain vomiting or diarrhea. No specific urinary symptoms. He is hemodynamically stable and afebrile. CBC was checked 2 days ago was unremarkable with no leukocytosis. Looks like also patient has difficulty with placement, social media marketing manager on the case. Patient may need guardianship 12/20/2024 Patient seen and evaluated resting comfortably in bed; very hard of hearing; patient is status post left inguinal hernia repair on 12/16/2024 Vital signs are reviewed and remained stable Patient is being followed by surgery; recommending to continue with Flomax for urinary retention; pain management as discussed earlier -Patient is recommended ECF placement; case management on board -Discharge when arrangements are made 12/21/2024 Patient is seen and evaluated in room; denies any specific complaints; discussed with nursing staff; no specific concerns reported Vital signs are reviewed and stable with temperature of 98.5, pulse 81, respirations 16 and blood pressure 125/69 with O2 saturation 96% on room air Lab reviewed from 12/18/2024 shows WBC 8.9, hemoglobin of 15.4 and platelet count of 157, sodium 138, potassium 4.3, BUNs/creatinine of 25/0.97 -Patient awaits placement to ECF once arrangements are made; patient will need a guardian appointed prior to transition; case management on board 12/22 No new complaint Pending guardianship which might take up to a week per correctional casework specialist 12/23 Patient is asymptomatic Patient pending placement after getting guardianship 12/24/24: Patient seen and examined at bedside today. Patient states desire to go home. He refused rehab placement. Agreed to home with home care. Patient is confused per nursing. He is awaiting guardianship hearing. 12/25/24: Patient evalauted at bedside today. Last night patient agitated, yelling and aggressive toward staff and attempting to leave. Jacques Kilgore called at 16:10. Stat dose of PO seroquel administered and patient seemed to be settled down after that. 12/26/24: Patient examined today. Yesterday afternoon patient became agitated again, PO Seroquel 12.5 mg administered. 12/27/24: Patient seen and examined at bedside today. Patient had a bowel movement after adding stool softeners. At the guardianship hearing yesterday public guardian was appointed as legal guardian. 12/28. Patient seen and examined. Patient became agitated this afternoon and wants to leave. Vital signs stable Review of systems: Pertinent positives and negatives as discussed in HPI, a complete review of systems was performed and all other systems are negative. Vitals: Signs Reviewed Physical examination: General: nontoxic, no distress, appears at stated age, Generally weak Derm: warm, dry, intact Head: atraumatic, normocephalic, symmetric Eyes: EOMI, anicteric sclera Mouth: no lip lesion, mucus membranes moist Cardiovascular: S1 S2 reg, no murmur Lungs: CTA bilateral, no rhonchi, no rales, no accessory muscle use Abdominal: soft, non-tender to palpation, Left inguinal wound is closed and healing Extremities: No cyanosis, clubbing, or pedal edema. Neuro: alert and oriented x 2-3 partial Gross neurological examination did not reveal any focal deficits. Psych: well appearing, appropriate affect Assessment/Plan: #. Mild metabolic encephalopathy #. Fall without syncope Close monitoring Patient refused rehab placement. Agreed to home with home care Psychiatrist consulted, recommend patient DOES NOT have decision making capacity at this time and is unable to reason through and communicate/appreciate the risks, benefits and alternatives to treatment Patient received legal guardianship on 12/26 D/C plan pending accepting facility and obtaining prior Auth chore worker on the case Seroquel 12.5 mg PO twice daily PRN and Zyprexa as needed for agitation #. Constipation Continue Miralax 17 g p.o. twice daily and Colace 100 mg p.o. twice daily #. Acute Urinary retention Continue Tamsulosin 0.4 mg PO daily #. Hypertension Continue Amlodipine 5 mg PO daily #. Left inguinal hernia #. S/p elective repair 12/16/24 Continue with pain management per general surgery Continue supportive care General surgery is following, recommend patient is stable for discharge from surgical standpoint F: None E: Replete as required N: Regular diet DVT prophylaxis: Subcutaneous heparin and SCD Objective - Vital Signs Vital signs: Vital Signs Temp 97.5 F L 12/28/24 07:00 Pulse 70 12/28/24 07:00 Resp 17 12/28/24 07:00 BP 148/69 12/28/24 07:00 Pulse Ox 96 12/28/24 07:00 FiO2 Intake & Output 12/27/24 12/28/24 12/28/24 18:59 06:59 18:59 Intake Total 236 236 Output Total 525 Balance -289 236 Intake: Oral 236 236 Output: Urine 525 Other: Voiding Method Toilet Toilet Urinal Urinal # Voids 2 2 # Bowel Movements 1 - Labs CBC & Chem 7: 12/18/24 15:35 12/18/24 15:35
[2024-12-28] MEDS: OLANZapine 10 MG VIAL IM PRN (14:51)
[2024-12-28] MEDS: QUEtiapine 25 MG TAB PO PRN (21:20)
[2024-12-29 05:11] LABS: HCT 45.6 % (39.0-53.0); HGB 15.1 gm/dL (13.0-17.5); MCH 32.5 pg (25.0-35.0); MCHC 33.2 g/dL (31.0-37.0); MCV 97.9 fL (80.0-100.0); Mean Platelet Volume 9.2; Platelet Count 216 k/uL (150-450); RBC 4.66 m/uL (4.30-5.90); RDW 13.1 % (11.5-15.5); WBC 6.3 k/uL (3.8-10.6)
[2024-12-29 05:18] LABS: African American GFR (CKD) >90 (>60 ml/min/1.73 sqM); Anion Gap 3 mmol/L; Blood Urea Nitrogen 25 mg/dL (9-20); Calcium 9.5 mg/dL (8.4-10.2); Carbon Dioxide 29 mmol/L (22-30); Chloride 104 mmol/L (98-107); Glucose 85 mg/dL (74-99); Non-African American GFR(CKD) 78 (>60 ml/min/1.73 sqM); Potassium 4.6 mmol/L (3.5-5.1); Sodium 136 mmol/L (137-145)
--- NOTE | 2024-12-29 13:30 | P.PN ---
Subjective Progress Note Date: 12/29/24 SURGICAL PROGRESS NOTE CHIEF COMPLAINT: Left inguinal hernia HISTORY OF PRESENT ILLNESS: Patient is postop day #13 status post laparoscopic robotic repair of left inguinal hernia. No new complaints. Tolerating diet. PHYSICAL EXAM: VITAL SIGNS: Reviewed. GENERAL: Well-developed in no acute distress. ABDOMEN: Soft. Nondistended. ASSESSMENT: 1. Left inguinal hernia PLAN: -Social work working on ECF placement -Patient is stable for discharge from surgical standpoint when medically cleared and placement is arranged Physician Printer Helper note has been reviewed by physician. Signing provider agrees with the documented findings, assessment, and plan of care. Objective - Vital Signs Vital signs: Vital Signs Temp 97.4 F L 12/29/24 08:00 Pulse 66 12/29/24 08:00 Resp 16 12/29/24 08:00 BP 116/68 12/29/24 08:00 Pulse Ox 98 12/29/24 08:00 FiO2 Intake & Output 12/28/24 12/29/24 12/29/24 18:59 06:59 18:59 Intake Total 472 236 Balance 472 236 Intake: Oral 472 236 Other: # Voids 5 2 # Bowel Movements 1 - Labs CBC & Chem 7: 12/29/24 04:29 12/29/24 04:29 Labs: Abnormal Lab Results - Last 24 Hours (Table) 12/29/24 Range/Units 04:29 Sodium 136 L (137-145) mmol/L BUN 25 H (9-20) mg/dL
--- NOTE | 2024-12-29 14:01 | P.PN ---
Subjective Progress Note Date: 12/29/24 Principal diagnosis: Hospital course: This is a pleasant 89 years old male who was admitted by surgery team for elective left inguinal hernia status postrepair Developed acute urinary turned tension, currently Poole catheter was removed. Patient was mildly confused but it looks improvement, last night he fell, CT of the brain was negative for acute process Today he is awake alert mildly confused, he follows command, he has insight into his illness. His left inguinal wound is healing He denies chest pain or dyspnea. No abdominal pain vomiting or diarrhea. No specific urinary symptoms. He is hemodynamically stable and afebrile. CBC was checked 2 days ago was unremarkable with no leukocytosis. Looks like also patient has difficulty with placement, social worker clinical on the case. Patient may need guardianship 12/20/2024 Patient seen and evaluated resting comfortably in bed; very hard of hearing; patient is status post left inguinal hernia repair on 12/16/2024 Vital signs are reviewed and remained stable Patient is being followed by surgery; recommending to continue with Flomax for urinary retention; pain management as discussed earlier -Patient is recommended ECF placement; case management on board -Discharge when arrangements are made 12/21/2024 Patient is seen and evaluated in room; denies any specific complaints; discussed with nursing staff; no specific concerns reported Vital signs are reviewed and stable with temperature of 98.5, pulse 81, respirations 16 and blood pressure 125/69 with O2 saturation 96% on room air Lab reviewed from 12/18/2024 shows WBC 8.9, hemoglobin of 15.4 and platelet count of 157, sodium 138, potassium 4.3, BUNs/creatinine of 25/0.97 -Patient awaits placement to ECF once arrangements are made; patient will need a guardian appointed prior to transition; case management on board 12/22 No new complaint Pending guardianship which might take up to a week per case filler 12/23 Patient is asymptomatic Patient pending placement after getting guardianship 12/24/24: Patient seen and examined at bedside today. Patient states desire to go home. He refused rehab placement. Agreed to home with home care. Patient is confused per nursing. He is awaiting guardianship hearing. 12/25/24: Patient evalauted at bedside today. Last night patient agitated, yelling and aggressive toward staff and attempting to leave. Jacques Kilgore called at 16:10. Stat dose of PO seroquel administered and patient seemed to be settled down after that. 12/26/24: Patient examined today. Yesterday afternoon patient became agitated again, PO Seroquel 12.5 mg administered. 12/27/24: Patient seen and examined at bedside today. Patient had a bowel movement after adding stool softeners. At the guardianship hearing yesterday public guardian was appointed as legal guardian. 12/28. Patient seen and examined. Patient became agitated this afternoon and wants to leave. Vital signs stable 12/29/24: Patient evaluated today. Vital signs are stable. Labs today show WBC 6.3, hemoglobin 13.4, sodium 136, potassium 4.6, BUN 25, creatinine 0.84. Review of systems: Pertinent positives and negatives as discussed in HPI, a complete review of systems was performed and all other systems are negative. Vitals: Signs Reviewed Physical examination: General: nontoxic, no distress, appears at stated age, Generally weak Derm: warm, dry, intact Head: atraumatic, normocephalic, symmetric Eyes: EOMI, anicteric sclera Mouth: no lip lesion, mucus membranes moist Cardiovascular: S1 S2 reg, no murmur Lungs: CTA bilateral, no rhonchi, no rales, no accessory muscle use Abdominal: soft, non-tender to palpation, Left inguinal wound is closed and healing Extremities: No cyanosis, clubbing, or pedal edema. Neuro: alert and oriented x 2-3 partial Gross neurological examination did not reveal any focal deficits. Psych: well appearing, appropriate affect Assessment/Plan: #. Mild metabolic encephalopathy #. Fall without syncope Close monitoring Patient refused rehab placement. Agreed to home with home care Psychiatrist consulted, recommend patient DOES NOT have decision making capacity at this time and is unable to reason through and communicate/appreciate the ri sks, benefits and alternatives to treatment Patient received legal guardianship on 12/26 D/C plan pending accepting facility and obtaining prior Auth vehicle delivery worker on the case Seroquel 12.5 mg PO twice daily PRN and Zyprexa as needed for agitation #. Constipation Continue Miralax 17 g p.o. twice daily and Colace 100 mg p.o. twice daily #. Mild hyponatremia Na 136 Monitor BMP #. Acute Urinary retention Continue Tamsulosin 0.4 mg PO daily #. Hypertension Continue Amlodipine 5 mg PO daily #. Left inguinal hernia #. S/p elective repair 12/16/24 Continue with pain management per general surgery Continue supportive care General surgery is following, recommend patient is stable for discharge from surgical standpoint F: None E: Replete as required N: Regular diet DVT prophylaxis: Subcutaneous heparin and SCD Objective - Vital Signs Vital signs: Vital Signs Temp 97.4 F L 12/29/24 08:00 Pulse 66 12/29/24 08:00 Resp 16 12/29/24 08:00 BP 116/68 12/29/24 08:00 Pulse Ox 98 12/29/24 08:00 FiO2 Intake & Output 12/28/24 12/29/24 12/29/24 18:59 06:59 18:59 Intake Total 472 Balance 472 Intake: Oral 472 Other: # Voids 5 2 # Bowel Movements 1 - Labs CBC & Chem 7: 12/29/24 04:29 12/29/24 04:29 Labs: Abnormal Lab Results - Last 24 Hours (Table) 12/29/24 Range/Units 04:29 Sodium 136 L (137-145) mmol/L BUN 25 H (9-20) mg/dL
--- NOTE | 2024-12-30 12:14 | P.PN ---
Subjective Progress Note Date: 12/30/24 Principal diagnosis: Hospital course: This is a pleasant 89 years old male who was admitted by surgery team for elective left inguinal hernia status postrepair Developed acute urinary turned tension, currently Poole catheter was removed. Patient was mildly confused but it looks improvement, last night he fell, CT of the brain was negative for acute process Today he is awake alert mildly confused, he follows command, he has insight into his illness. His left inguinal wound is healing He denies chest pain or dyspnea. No abdominal pain vomiting or diarrhea. No specific urinary symptoms. He is hemodynamically stable and afebrile. CBC was checked 2 days ago was unremarkable with no leukocytosis. Looks like also patient has difficulty with placement, social insurance specialist on the case. Patient may need guardianship 12/20/2024 Patient seen and evaluated resting comfortably in bed; very hard of hearing; patient is status post left inguinal hernia repair on 12/16/2024 Vital signs are reviewed and remained stable Patient is being followed by surgery; recommending to continue with Flomax for urinary retention; pain management as discussed earlier -Patient is recommended ECF placement; case management on board -Discharge when arrangements are made 12/21/2024 Patient is seen and evaluated in room; denies any specific complaints; discussed with nursing staff; no specific concerns reported Vital signs are reviewed and stable with temperature of 98.5, pulse 81, respirations 16 and blood pressure 125/69 with O2 saturation 96% on room air Lab reviewed from 12/18/2024 shows WBC 8.9, hemoglobin of 15.4 and platelet count of 157, sodium 138, potassium 4.3, BUNs/creatinine of 25/0.97 -Patient awaits placement to ECF once arrangements are made; patient will need a guardian appointed prior to transition; case management on board 12/22 No new complaint Pending guardianship which might take up to a week per ed case manager 12/23 Patient is asymptomatic Patient pending placement after getting guardianship 12/24/24: Patient seen and examined at bedside today. Patient states desire to go home. He refused rehab placement. Agreed to home with home care. Patient is confused per nursing. He is awaiting guardianship hearing. 12/25/24: Patient evalauted at bedside today. Last night patient agitated, yelling and aggressive toward staff and attempting to leave. Jacques Kilgore called at 16:10. Stat dose of PO seroquel administered and patient seemed to be settled down after that. 12/26/24: Patient examined today. Yesterday afternoon patient became agitated again, PO Seroquel 12.5 mg administered. 12/27/24: Patient seen and examined at bedside today. Patient had a bowel movement after adding stool softeners. At the guardianship hearing yesterday public guardian was appointed as legal guardian. 12/28. Patient seen and examined. Patient became agitated this afternoon and wants to leave. Vital signs stable 12/29/24: Patient evaluated today. Vital signs are stable. Labs today show WBC 6.3, hemoglobin 13.4, sodium 136, potassium 4.6, BUN 25, creatinine 0.84. 12/30/24: Patient examined at bedside. No acute events overnight. Discharge plan pending further discussion with public guardian. Review of systems: Pertinent positives and negatives as discussed in HPI, a complete review of systems was performed and all other systems are negative. Vitals: Signs Reviewed Physical examination: General: nontoxic, no distress, appears at stated age, Generally weak Derm: warm, dry, intact Head: atraumatic, normocephalic, symmetric Eyes: EOMI, anicteric sclera Mouth: no lip lesion, mucus membranes moist Cardiovascular: S1 S2 reg, no murmur Lungs: CTA bilateral, no rhonchi, no rales, no accessory muscle use Abdominal: soft, non-tender to palpation, Left inguinal wound is closed and healing Extremities: No cyanosis, clubbing, or pedal edema. Neuro: alert and oriented x 2-3 partial Gross neurological examination did not reveal any focal deficits. Psych: well appearing, appropriate affect Assessment/Plan: #. Mild metabolic encephalopathy #. Fall without syncope Close monitoring Patient refused rehab placement. Agreed to home with home care Psychiatrist consulted, recommend patient DOES NOT have decision making capacity at this time and is unable to reason through and communicate/appreciate the risks, benefits and alternatives to treatment Patient received legal guardianship on 12/26 Discharge plan pending further discussion with public guardian charhouse worker on the case Seroquel 12.5 mg PO twice daily PRN and Zyprexa 5 mg IM BID as needed for agitation #. Constipation Continue Miralax 17 g p.o. twice daily and Colace 100 mg p.o. twice daily #. Mild hyponatremia Na 136 Monitor BMP #. Acute Urinary retention Continue Tamsulosin 0.4 mg PO daily #. Hypertension Continue Amlodipine 5 mg PO daily #. Left inguinal hernia #. S/p elective repair 12/16/24 Continue with pain management per general surgery Continue supportive care General surgery is following, recommend patient is stable for discharge from leticia gical standpoint F: None E: Replete as required N: Regular diet DVT prophylaxis: Subcutaneous heparin and SCD Objective - Vital Signs Vital signs: Vital Signs Temp 98.3 F 12/30/24 02:00 Pulse 65 12/30/24 02:00 Resp 17 12/29/24 20:00 BP 115/73 12/30/24 02:00 Pulse Ox 97 12/30/24 02:00 FiO2 Intake & Output 12/29/24 12/30/24 12/30/24 18:59 06:59 18:59 Intake Total 708 540 Output Total 800 400 Balance -92 140 Intake: Oral 708 540 Output: Urine 500 400 Post Void Residual 300 - Labs CBC & Chem 7: 12/29/24 04:29 12/29/24 04:29
--- NOTE | 2024-12-30 16:52 | CDI ---
Documentation Clarification Form Date: 12/30/2024 08:44:00 AM From: Yadira Broussard RN, CCDS Phone: [phone] Admit Date: 12/16/2024 09:47:00 AM Patient Name: Sunday Tineo Visit Number: [id number] Discharge Date: ATTENTION: The Clinical Documentation Specialists (CDI) and [facility] Coding Staff appreciate your assistance in clarifying documentation. Please respond to the clarification below the line at the bottom and electronically sign. The CDI & [facility] Coding staff will review the response and follow-up if needed. Please note: Queries are made part of the Legal Health Record. If you have any questions, please contact the author of this message via ITS. Doctor. Carl Sheet Mild metabolic encephalopathy is documented in the progress note starting on which may lack sufficient clinical evidence/support in the medical record. Additional clarification is requested. History/Risk Factors: 12/18 mild confusion Clinical Indicators: 89-year-old male present on 12/16/24 for elective Robotic Assisted Laparoscopic Left Inguinal hernia repair. He was sent to recovery in stable condition. 12/17 per nursing note episodes confusion. He also had some hallucinations, per 12/18 surgical progress note: Answering questions appropriately. 12/18 CT Brain: No acute intracranial process. Nonspecific white matter changes, likely secondary to chronic small vessel ischemic disease. 12/18 IM progress notes: Today he is awake alert mildly confused, he follows command, has insight into his illness He is hemodynamically stable and afebrile. CBC was checked 2 days ago was unremarkable with no leukocytosis. VS 124/55 93 19 97.5 96% RA 12/24 Psychiatric Consult (competency) He was A Ox4 with 2/3 delayed recall. Patient denies any visual hallucinations and denies any auditory hallucinations IMPRESSIONS: Unspecified neurocognitive disorder, Delirium, improving Treatment: Delirium precautions, avoiding use of narcotics and [employer] sedatives Frequent re-orientation Please clarify if mild metabolic encephalopathy is a valid diagnosis? [ ] No, mild metabolic encephalopathy is ruled out [ x ] Yes, mild metabolic encephalopathy is present as evidence by (additional clinical support): [ ] Delirium, unspecified [ ] Other (please specify diagnosis) [ ] Unable to determine (Template Last Revised: April 2024) MTDD
--- NOTE | 2024-12-31 10:47 | P.PN ---
Subjective Progress Note Date: 12/31/24 Principal diagnosis: Hospital course: This is a pleasant 89 years old male who was admitted by surgery team for elective left inguinal hernia status postrepair Developed acute urinary turned tension, currently Poole catheter was removed. Patient was mildly confused but it looks improvement, last night he fell, CT of the brain was negative for acute process Today he is awake alert mildly confused, he follows command, he has insight into his illness. His left inguinal wound is healing He denies chest pain or dyspnea. No abdominal pain vomiting or diarrhea. No specific urinary symptoms. He is hemodynamically stable and afebrile. CBC was checked 2 days ago was unremarkable with no leukocytosis. Looks like also patient has difficulty with placement, social security benefits interviewer on the case. Patient may need guardianship 12/20/2024 Patient seen and evaluated resting comfortably in bed; very hard of hearing; patient is status post left inguinal hernia repair on 12/16/2024 Vital signs are reviewed and remained stable Patient is being followed by surgery; recommending to continue with Flomax for urinary retention; pain management as discussed earlier -Patient is recommended ECF placement; case management on board -Discharge when arrangements are made 12/21/2024 Patient is seen and evaluated in room; denies any specific complaints; discussed with nursing staff; no specific concerns reported Vital signs are reviewed and stable with temperature of 98.5, pulse 81, respirations 16 and blood pressure 125/69 with O2 saturation 96% on room air Lab reviewed from 12/18/2024 shows WBC 8.9, hemoglobin of 15.4 and platelet count of 157, sodium 138, potassium 4.3, BUNs/creatinine of 25/0.97 -Patient awaits placement to ECF once arrangements are made; patient will need a guardian appointed prior to transition; case management on board 12/22 No new complaint Pending guardianship which might take up to a week per trimming caser 12/23 Patient is asymptomatic Patient pending placement after getting guardianship 12/24/24: Patient seen and examined at bedside today. Patient states desire to go home. He refused rehab placement. Agreed to home with home care. Patient is confused per nursing. He is awaiting guardianship hearing. 12/25/24: Patient evalauted at bedside today. Last night patient agitated, yelling and aggressive toward staff and attempting to leave. Jacques Kilgore called at 16:10. Stat dose of PO seroquel administered and patient seemed to be settled down after that. 12/26/24: Patient examined today. Yesterday afternoon patient became agitated again, PO Seroquel 12.5 mg administered. 12/27/24: Patient seen and examined at bedside today. Patient had a bowel movement after adding stool softeners. At the guardianship hearing yesterday public guardian was appointed as legal guardian. 12/28. Patient seen and examined. Patient became agitated this afternoon and wants to leave. Vital signs stable 12/29/24: Patient evaluated today. Vital signs are stable. Labs today show WBC 6.3, hemoglobin 13.4, sodium 136, potassium 4.6, BUN 25, creatinine 0.84. 12/30/24: Patient examined at bedside. No acute events overnight. Discharge plan pending further discussion with public guardian. 12/31/24: Patient seen and examined at bedside today. BP today is 144/71. No acute events overnight. Review of systems: Pertinent positives and negatives as discussed in HPI, a complete review of systems was performed and all other systems are negative. Vitals: Signs Reviewed Physical examination: General: nontoxic, no distress, appears at stated age, Generally weak Derm: warm, dry, intact Head: atraumatic, normocephalic, symmetric Eyes: EOMI, anicteric sclera Mouth: no lip lesion, mucus membranes moist Cardiovascular: S1 S2 reg, no murmur Lungs: CTA bilateral, no rhonchi, no rales, no accessory muscle use Abdominal: soft, non-tender to palpation, Left inguinal wound is closed and healing Extremities: No cyanosis, clubbing, or pedal edema. Neuro: alert and oriented x 2-3 partial Gross neurological examination did not reveal any focal deficits. Psych: well appearing, appropriate affect Assessment/Plan: #. Mild metabolic encephalopathy #. Fall without syncope Close monitoring Patient refused rehab placement. Agreed to home with home care Psychiatrist consulted, recommend patient DOES NOT have decision making capacity at this time and is unable to reason through and communicate/appreciate the risks, benefits and alternatives to treatment Patient received legal guardianship on 12/26 Discharge plan pending further discussion with public guardian wash house worker on the case Seroquel 12.5 mg PO twice daily PRN and Zyprexa 5 mg IM BID as needed for agitation #. Constipation Continue Miralax 17 g p.o. twice daily and Colace 100 mg p.o. twice daily #. Mild hyponatremia Na 136 Monitor BMP #. Acute Urinary retention Continue Tamsulosin 0.4 mg PO daily #. Hypertension Continue Amlodipine 5 mg PO daily #. Left inguinal hernia #. S/p elective repair 12/16/24 Continue with pain management per general surgery Continue supportive care General surgery is following, recommend patient is stable for discharge from surgical standpoint F: None E: Replete as required N: Regular diet DVT prophylaxis: Subcutaneous heparin and SCD Objective - Vital Signs Vital signs: Vital Signs Temp 97.4 F L 12/31/24 07:03 Pulse 81 12/31/24 07:03 Resp 16 12/31/24 07:03 BP 144/71 12/31/24 07:03 Pulse Ox 98 12/31/24 07:03 FiO2 Intake & Output 12/30/24 12/31/24 12/31/24 18:59 06:59 18:59 Intake Total 604 Balance 604 Intake: Oral 604 Other: Voiding Method Toilet Urinal # Voids 3 4 # Bowel Movements 1 - Labs CBC & Chem 7: 12/29/24 04:29 12/29/24 04:29
--- NOTE | 2025-01-01 13:24 | P.PN ---
Subjective Progress Note Date: 01/01/25 Principal diagnosis: Hospital course: This is a pleasant 89 years old male who was admitted by surgery team for elective left inguinal hernia status postrepair Developed acute urinary turned tension, currently Poole catheter was removed. Patient was mildly confused but it looks improvement, last night he fell, CT of the brain was negative for acute process Today he is awake alert mildly confused, he follows command, he has insight into his illness. His left inguinal wound is healing He denies chest pain or dyspnea. No abdominal pain vomiting or diarrhea. No specific urinary symptoms. He is hemodynamically stable and afebrile. CBC was checked 2 days ago was unremarkable with no leukocytosis. Looks like also patient has difficulty with placement, social services assistant on the case. Patient may need guardianship 12/20/2024 Patient seen and evaluated resting comfortably in bed; very hard of hearing; patient is status post left inguinal hernia repair on 12/16/2024 Vital signs are reviewed and remained stable Patient is being followed by surgery; recommending to continue with Flomax for urinary retention; pain management as discussed earlier -Patient is recommended ECF placement; case management on board -Discharge when arrangements are made 12/21/2024 Patient is seen and evaluated in room; denies any specific complaints; discussed with nursing staff; no specific concerns reported Vital signs are reviewed and stable with temperature of 98.5, pulse 81, respirations 16 and blood pressure 125/69 with O2 saturation 96% on room air Lab reviewed from 12/18/2024 shows WBC 8.9, hemoglobin of 15.4 and platelet count of 157, sodium 138, potassium 4.3, BUNs/creatinine of 25/0.97 -Patient awaits placement to ECF once arrangements are made; patient will need a guardian appointed prior to transition; case management on board 12/22 No new complaint Pending guardianship which might take up to a week per medical case manager 12/23 Patient is asymptomatic Patient pending placement after getting guardianship 12/24/24: Patient seen and examined at bedside today. Patient states desire to go home. He refused rehab placement. Agreed to home with home care. Patient is confused per nursing. He is awaiting guardianship hearing. 12/25/24: Patient evalauted at bedside today. Last night patient agitated, yelling and aggressive toward staff and attempting to leave. Jacques Kilgore called at 16:10. Stat dose of PO seroquel administered and patient seemed to be settled down after that. 12/26/24: Patient examined today. Yesterday afternoon patient became agitated again, PO Seroquel 12.5 mg administered. 12/27/24: Patient seen and examined at bedside today. Patient had a bowel movement after adding stool softeners. At the guardianship hearing yesterday public guardian was appointed as legal guardian. 12/28. Patient seen and examined. Patient became agitated this afternoon and wants to leave. Vital signs stable 12/29/24: Patient evaluated today. Vital signs are stable. Labs today show WBC 6.3, hemoglobin 13.4, sodium 136, potassium 4.6, BUN 25, creatinine 0.84. 12/30/24: Patient examined at bedside. No acute events overnight. Discharge plan pending further discussion with public guardian. 12/31/24: Patient seen and examined at bedside today. BP today is 144/71. No acute events overnight. 01/01/25: Patient evaluated today. Patient had a witnessed fall yesterday while trying to go to the restroom but did not hit his head or had any visible bruising. He did not complain of pain anywhere. Patient resting well, without any distress today. Review of systems: Pertinent positives and negatives as discussed in HPI, a complete review of systems was performed and all other systems are negative. Vitals: Signs Reviewed Physical examination: General: nontoxic, no distress, appears at stated age, Generally weak Derm: warm, dry, intact Head: atraumatic, normocephalic, symmetric Eyes: EOMI, anicteric sclera Mouth: no lip lesion, mucus membranes moist Cardiovascular: S1 S2 reg, no murmur Lungs: CTA bilateral, no rhonchi, no rales, no accessory muscle use Abdominal: soft, non-tender to palpation, Left inguinal wound is closed and healing Extremities: No cyanosis, clubbing, or pedal edema. Neuro: alert and oriented x 2-3 partial Gross neurological examination did not reveal any focal deficits. Psych: well appearing, appropriate affect Assessment/Plan: #. Mild metabolic encephalopathy #. Fall without syncope Close monitoring Patient refused rehab placement. Agreed to home with home care Psychiatrist consulted, recommend patient DOES NOT have decision making capacity at this time and is unable to reason through and communicate/appreciate the risks, benefits and alternatives to treatment Patient received legal guardianship on 12/26 Discharge plan pending further discussion with public guardian workers compensation paralegal on the case Seroquel 12.5 mg PO twice daily PRN and Zyprexa 5 mg IM BID as needed for agitation #. Constipation Continue Miralax 17 g p.o. twice daily and Colace 100 mg p.o. twice daily #. Mild hyponatremia Na 136 Monitor BMP #. Acute Urinary retention Continue Tamsulosin 0.4 mg PO daily #. Hypertension Continue Amlodipine 5 mg PO daily #. Left inguinal hernia #. S/p elective repair 12/16/24 Continue with pain management per general surgery Continue supportive care General surgery is following, recommend patient is stable for discharge from surgical standpoint F: None E: Replete as required N: Regular diet DVT prophylaxis: Subcutaneous heparin and SCD Objective - Vital Signs Vital signs: Vital Signs Temp 98.3 F 01/01/25 09:20 Pulse 62 01/01/25 09:20 Resp 15 01/01/25 09:20 BP 118/63 01/01/25 09:20 Pulse Ox 96 01/01/25 09:20 FiO2 Intake & Output 12/31/24 01/01/25 01/01/25 18:59 06:59 18:59 Intake Total 490 118 Balance 490 118 Intake: Oral 490 118 Other: Voiding Method Toilet Toilet Toilet Urinal Urinal Urinal # Voids 1 1 1 # Bowel Movements 1 1 - Labs CBC & Chem 7: 12/29/24 04:29 12/29/24 04:29
[2025-01-01] MEDS ORDERED: LORazepam 1 MG TAB PO PRN (15:26)
[2025-01-01] MEDS: QUEtiapine 25 MG TAB PO SCH (20:37)
[2025-01-01] MEDS ORDERED: LORazepam 1 MG TAB PO SCH (21:00)
[2025-01-02 08:22] VITALS: RESP 16
--- NOTE | 2025-01-02 12:24 | P.PN ---
Subjective Progress Note Date: 01/02/25 Principal diagnosis: Hospital course: This is a pleasant 89 years old male who was admitted by surgery team for elective left inguinal hernia status postrepair Developed acute urinary turned tension, currently Poole catheter was removed. Patient was mildly confused but it looks improvement, last night he fell, CT of the brain was negative for acute process Today he is awake alert mildly confused, he follows command, he has insight into his illness. His left inguinal wound is healing He denies chest pain or dyspnea. No abdominal pain vomiting or diarrhea. No specific urinary symptoms. He is hemodynamically stable and afebrile. CBC was checked 2 days ago was unremarkable with no leukocytosis. Looks like also patient has difficulty with placement, social worker health services on the case. Patient may need guardianship 12/20/2024 Patient seen and evaluated resting comfortably in bed; very hard of hearing; patient is status post left inguinal hernia repair on 12/16/2024 Vital signs are reviewed and remained stable Patient is being followed by surgery; recommending to continue with Flomax for urinary retention; pain management as discussed earlier -Patient is recommended ECF placement; case management on board -Discharge when arrangements are made 12/21/2024 Patient is seen and evaluated in room; denies any specific complaints; discussed with nursing staff; no specific concerns reported Vital signs are reviewed and stable with temperature of 98.5, pulse 81, respirations 16 and blood pressure 125/69 with O2 saturation 96% on room air Lab reviewed from 12/18/2024 shows WBC 8.9, hemoglobin of 15.4 and platelet count of 157, sodium 138, potassium 4.3, BUNs/creatinine of 25/0.97 -Patient awaits placement to ECF once arrangements are made; patient will need a guardian appointed prior to transition; case management on board 12/22 No new complaint Pending guardianship which might take up to a week per employment case manager 12/23 Patient is asymptomatic Patient pending placement after getting guardianship 12/24/24: Patient seen and examined at bedside today. Patient states desire to go home. He refused rehab placement. Agreed to home with home care. Patient is confused per nursing. He is awaiting guardianship hearing. 12/25/24: Patient evalauted at bedside today. Last night patient agitated, yelling and aggressive toward staff and attempting to leave. Jacques Kilgore called at 16:10. Stat dose of PO seroquel administered and patient seemed to be settled down after that. 12/26/24: Patient examined today. Yesterday afternoon patient became agitated again, PO Seroquel 12.5 mg administered. 12/27/24: Patient seen and examined at bedside today. Patient had a bowel movement after adding stool softeners. At the guardianship hearing yesterday public guardian was appointed as legal guardian. 12/28. Patient seen and examined. Patient became agitated this afternoon and wants to leave. Vital signs stable 12/29/24: Patient evaluated today. Vital signs are stable. Labs today show WBC 6.3, hemoglobin 13.4, sodium 136, potassium 4.6, BUN 25, creatinine 0.84. 12/30/24: Patient examined at bedside. No acute events overnight. Discharge plan pending further discussion with public guardian. 12/31/24: Patient seen and examined at bedside today. BP today is 144/71. No acute events overnight. 01/01/25: Patient evaluated today. Patient had a witnessed fall yesterday while trying to go to the restroom but did not hit his head or had any visible bruising. He did not complain of pain anywhere. Patient resting well, without any distress today. 01/02/25: Patient examined at bedside. No acute events overnight. D/C plan to [facility] pending prior auth. Review of systems: Pertinent positives and negatives as discussed in HPI, a complete review of sys tems was performed and all other systems are negative. Vitals: Signs Reviewed Physical examination: General: nontoxic, no distress, appears at stated age, Generally weak Derm: warm, dry, intact Head: atraumatic, normocephalic, symmetric Eyes: EOMI, anicteric sclera Mouth: no lip lesion, mucus membranes moist Cardiovascular: S1 S2 reg, no murmur Lungs: CTA bilateral, no rhonchi, no rales, no accessory muscle use Abdominal: soft, non-tender to palpation, Left inguinal wound is closed and healing Extremities: No cyanosis, clubbing, or pedal edema. Neuro: alert and oriented x 2-3 partial Gross neurological examination did not reveal any focal deficits. Psych: well appearing, appropriate affect Assessment/Plan: #. Mild metabolic encephalopathy #. Fall without syncope Close monitoring Patient refused rehab placement. Agreed to home with home care Psychiatrist consulted, recommend patient DOES NOT have decision making capacity at this time and is unable to reason through and communicate/appreciate the risks, benefits and alternatives to treatment Patient received legal guardianship on 12/26 D/C plan to [facility] pending prior auth drug department worker on the case Seroquel 12.5 mg PO twice daily PRN and Zyprexa 5 mg IM BID as needed for agitation #. Constipation Continue Miralax 17 g p.o. twice daily and Colace 100 mg p.o. twice daily #. Mild hyponatremia Na 136 Monitor BMP #. Acute Urinary retention Continue Tamsulosin 0.4 mg PO daily #. Hypertension Continue Amlodipine 5 mg PO daily #. Left inguinal hernia #. S/p elective repair 12/16/24 Continue with pain management per general surgery Continue supportive care General surgery is following, recommend patient is stable for discharge from surgical standpoint F: None E: Replete as required N: Regular diet DVT prophylaxis: Subcutaneous heparin and SCD Objective - Vital Signs Vital signs: Vital Signs Temp 97.6 F 01/02/25 07:20 Pulse 60 01/02/25 07:20 Resp 16 01/02/25 07:20 BP 114/67 01/02/25 07:20 Pulse Ox 96 01/02/25 07:20 FiO2 Intake & Output 01/01/25 01/02/25 01/02/25 18:59 06:59 18:59 Intake Total 476 Balance 476 Intake: Oral 476 Other: Voiding Method Toilet Toilet Toilet Urinal Urinal Urinal # Voids 1 2 1 # Bowel Movements 1 - Labs CBC & Chem 7: 12/29/24 04:29 12/29/24 04:29
[2025-01-02 13:41] VITALS: BP 120/68; PULSE 80; TEMP 97.9
--- NOTE | 2025-01-02 15:13 | P.DS ---
Providers Date of admission: 12/16/24 09:47 Expected date of discharge: 01/02/25 Attending physician: Carl Gallegos MD Consults: 12/23/24 14:25 Consult Physician Routine Consulting Provider: Psychiatry - [facility] Psychiatry Consult Reason/Comments: Competency Do you want consulting provider notified?: Already Contacted Primary care physician: Stated None Hospital Course: Discharge diagnosis: Mild metabolic encephalopathy Fall without syncope Constipation Mild hyponatremia Acute Urinary retention Hypertension Left inguinal hernia S/p elective repair 12/16/24 Hospital Course: This is a pleasant 89 years old male who was admitted by surgery team for elective left inguinal hernia status postrepair Developed acute urinary turned tension, currently Poole catheter was removed. Patient was mildly confused but it looks improvement, last night he fell, CT of the brain was negative for acute process Today he is awake alert mildly confused, he follows command, he has insight into his illness. His left inguinal wound is healing He denies chest pain or dyspnea. No abdominal pain vomiting or diarrhea. No specific urinary symptoms. He is hemodynamically stable and afebrile. CBC was checked 2 days ago was unremarkable with no leukocytosis. Looks like also patient has difficulty with placement, social media project manager on the case. Patient may need guardianship 12/20/2024 Patient seen and evaluated resting comfortably in bed; very hard of hearing; patient is status post left inguinal hernia repair on 12/16/2024 Vital signs are reviewed and remained stable Patient is being followed by surgery; recommending to continue with Flomax for urinary retention; pain management as discussed earlier -Patient is recommended ECF placement; case management on board -Discharge when arrangements are made 12/21/2024 Patient is seen and evaluated in room; denies any specific complaints; discussed with nursing staff; no specific concerns reported Vital signs are reviewed and stable with temperature of 98.5, pulse 81, respirations 16 and blood pressure 125/69 with O2 saturation 96% on room air Lab reviewed from 12/18/2024 shows WBC 8.9, hemoglobin of 15.4 and platelet count of 157, sodium 138, potassium 4.3, BUNs/creatinine of 25/0.97 -Patient awaits placement to ECF once arrangements are made; patient will need a guardian appointed prior to transition; case management on board 12/22 No new complaint Pending guardianship which might take up to a week per case packer 12/23 Patient is asymptomatic Patient pending placement after getting guardianship 12/24/24: Patient seen and examined at bedside today. Patient states desire to go home. He refused rehab placement. Agreed to home with home care. Patient is confused per nursing. He is awaiting guardianship hearing. 12/25/24: Patient evalauted at bedside today. Last night patient agitated, yelling and aggressive toward staff and attempting to leave. Jacques Kilgore called at 16:10. Stat dose of PO seroquel administered and patient seemed to be settled down after that. 12/26/24: Patient examined today. Yesterday afternoon patient became agitated again, PO Seroquel 12.5 mg administered. 12/27/24: Patient seen and examined at bedside today. Patient had a bowel movement after adding stool softeners. At the guardianship hearing yesterday public guardian was appointed as legal guardian. 12/28. Patient seen and examined. Patient became agitated this afternoon and wants to leave. Vital signs stable 12/29/24: Patient evaluated today. Vital signs are stable. Labs today show WBC 6.3, hemoglobin 13.4, sodium 136, potassium 4.6, BUN 25, creatinine 0.84. 12/30/24: Patient examined at bedside. No acute events overnight. Discharge plan pending further discussion with public guardian. 12/31/24: Patient seen and examined at bedside today. BP today is 144/71. No acute events overnight. 01/01/25: Patient evaluated today. Patient had a witnessed fall yesterday while trying to go to the restroom but did not hit his head or had any visible bruising. He did not complain of pain anywhere. Patient resting well, without any distress today. 01/02/25: Patient examined at bedside. No acute events overnight. D/C plan to [facility]. Patient seen at bedside today and is feeling good and excited about discharge. Patient will be discharged today and is given a script for Ativan 1mg, Tamsulosin 0.4 mg and Amlodipine 5 mg. Patient is advised to be compliant with medications. Patient is advised to follow-up with PCP in 1-2 days. Vital signs are reviewed and stable General: nontoxic, no distress, appears at stated age, Generally weak Derm: warm, dry, intact Head: atraumatic, normocephalic, symmetric Eyes: EOMI, anicteric sclera Mouth: no lip lesion, mucus membranes moist Cardiovascular: S1 S2 reg, no murmur Lungs: CTA bilateral, no rhonchi, no rales, no accessory muscle use Abdominal: soft, non-tender to palpation, Left inguinal wound is closed and healing Extremities: No cyanosis, clubbing, or pedal edema. Neuro: alert and oriented x 2-3 partial Gross neurological examination did not reveal any focal deficits. Psych: well appearing, appropriate affect A total of 30 minutes of time were spent preparing this complex discharge summary. Patient was discharged on 01/02/25 at 1500. Patient Condition at Discharge: Stable Plan - Discharge Summary Discharge Rx Participant: No New Discharge Prescriptions: New Docusate [Colace] 100 mg PO BID #20 capsule Ibuprofen [Motrin] 600 mg PO Q6HR PRN #40 tab PRN Reason: Pain oxyCODONE HCL [OxyIR] 5 mg PO Q6H PRN 3 Days #10 tab PRN Reason: Pain LORazepam [Ativan] 1 mg PO BID PRN 3 Days #6 tab PRN Reason: Agitation Or Acute Anxiety Acetaminophen Tab [Tylenol] 650 mg PO Q6H #30 tab Tamsulosin [Flomax] 0.4 mg PO [id number] 14 Days #14 cap amLODIPine [Norvasc] 5 mg PO DAILY 14 Days #14 tab Discharge Medication List Acetaminophen Tab [Tylenol] 650 mg PO Q6H #30 tab 12/16/24 [Rx] Docusate [Colace] 100 mg PO BID #20 capsule 12/16/24 [Rx] Ibuprofen [Motrin] 600 mg PO Q6HR PRN #40 tab 12/16/24 [Rx] oxyCODONE HCL [OxyIR] 5 mg PO Q6H PRN 3 Days #10 tab 12/16/24 [Rx] LORazepam [Ativan] 1 mg PO BID PRN 3 Days #6 tab 01/02/25 [Rx] Tamsulosin [Flomax] 0.4 mg PO [id number] 14 Days #14 cap 01/02/25 [Rx] amLODIPine [Norvasc] 5 mg PO DAILY 14 Days #14 tab 01/02/25 [Rx] Follow up Appointment(s)/Referral(s): [facility], [NON-STAFF] - As Needed Constance Shane MD [STAFF PHYSICIAN] - 1 Week Bijan Lei MD [STAFF PHYSICIAN] - 12/23/24 2:40 pm Patient Instructions/Handouts: *Surgery [facility] - (Anesthesia) Discharge Instruc tions Outpatient Surgery, Pain Management After Surgery (DC), Inguinal Hernia Repair (DC) Discharge/Stand Alone Forms: Area PCPs Discharge Disposition: TRANSFER TO SNF/ECF
== END 2025-01-02 19:17 | DRG 350 ==
LOC: OR 06:37 → 6NMEDSUR 09:46 → OR 09:46 → EEVIPCON 09:47 → OBSVTOIN 09:47 → INTOOBSV 09:47 → 6NMEDSUR 12-18 18:50
PROVIDERS: ADMIT Internal Medicine; ATTEND Internal Medicine
PROC: 8E0W4CZ Robotic Assisted Procedure of Trunk Region, Percutaneous Endoscopic Approach (ICD-10-PCS; 2024-12-16)
PROC: 0YU64JZ Supplement Left Inguinal Region with Synthetic Substitute, Percutaneous Endoscopic Approach (ICD-10-PCS; principal; 2024-12-16 08:30)
DX: K40.90 Unilateral inguinal hernia, without obstruction or gangrene, not specified as recurrent (principal); G93.41 Metabolic encephalopathy; I10 Essential (primary) hypertension; E87.1 Hypo-osmolality and hyponatremia; H91.90 Unspecified hearing loss, unspecified ear; R33.9 Retention of urine, unspecified; W19.XXXA Unspecified fall, initial encounter; Y92.230 Patient room in hospital as the place of occurrence of the external cause; K59.00 Constipation, unspecified; Z79.899 Other long term (current) drug therapy
CPT/HCPCS: 64999; 70450; 80048; 81001; 85025; 85027